=== PATIENT | female | born 1970 | race Caucasian/White ===

== ENCOUNTER 2017-04-07 10:35 | Emergency (ER) | payer MEDICARE, MEDICAID ==
[2017-04-07] MEDS ORDERED: NS 0.9% 1000 ML* 2,000 ML IV ONE (19:14)
[2017-04-07] MEDS ORDERED: Ketorolac INJ* 30 MG/ML 1 ML VIAL IV PUSH ONE (19:15)
[2017-04-07] MEDS ORDERED: LORazepam INJ* 2 MG/ML 1 ML VIAL IV PUSH ONE (19:15)
[2017-04-07 19:28] LABS: Hematocrit 40 % (35-47); Hemoglobin 12.7 g/dl (12.0-16.0); Mean Corpuscular HGB Conc 32 g/dl (31-36); Mean Corpuscular Hemoglobin 29 pg (27-31); Mean Corpuscular Volume 91 fL (80-97); Mean Platelet Volume 8 um3 (7.4-10.4); Red Blood Count 4.36 10^6/ul (4.0-5.4); Red Cell Distribution Width 13 % (10.5-15); White Blood Count 5.1 10^3/ul (3.5-10.8)
[2017-04-07 19:43] LABS: ALT 15 U/L (7-52); AST 18 U/L (13-39); Albumin 4.5 g/dL (3.2-5.2); Alkaline Phosphatase 57 U/L (34-104); Anion Gap 6 mmol/L (2-11); BUN/Creatinine Ratio 16.7 (8-20); Blood Urea Nitrogen 16 mg/dL (6-24); CO2 Carbon Dioxide 28 mmol/L (22-32); Calcium 9.8 mg/dL (8.6-10.3); Chloride 104 mmol/L (101-111); EGFR African American 80.1 (>60); EGFR Non-African American 62.3 (>60); Globulin 2.3 g/dL (2-4); Glucose 113 mg/dL (70-100); Potassium 3.8 mmol/L (3.5-5.0); Sodium 138 mmol/L (133-145); Total Protein 6.8 g/dL (6.4-8.9)
--- NOTE | 2017-04-07 19:58 | RAD ---
INDICATION: Headache. COMPARISON: Comparison is made with a prior CT of the brain from November 29, 2015 and a prior MRI of the brain from January 04, 2016. TECHNIQUE: Contiguous axial sections of the brain were obtained from the skull base to the vertex without contrast. FINDINGS: The ventricles, cisterns and sulci are within normal limits. No significant focal abnormality or mass effect is seen. There is no evidence for hemorrhage. No significant focal osseous abnormality is seen. The visualized portion of the paranasal sinuses and mastoid air cells appear clear. IMPRESSION: NO EVIDENCE FOR ACUTE INTRACRANIAL ABNORMALITY.
--- NOTE | 2017-04-07 20:18 | RAD ---
INDICATION: Neck pain. COMPARISON: Comparison is made with a prior MRI of the cervical spine from January 04, 2016. TECHNIQUE: Contiguous axial sections were obtained from the skull base through the T2 vertebra. Images were reconstructed in the sagittal and coronal planes. FINDINGS: The vertebra are in normal alignment. No prevertebral soft tissue swelling or fracture is seen. At the C4-C5 level there is mild posterior uncinate process spurring. No significant spinal canal or neural foraminal narrowing is seen. At the C5-C6 level there is mild posterior uncinate process spurring. No significant spinal canal narrowing is seen. There is mild neural foraminal narrowing on the left side. At C6-C7 level there is mild posterior uncinate process spurring. No significant spinal canal or neural foraminal narrowing is seen. IMPRESSION: MILD CERVICAL SPONDYLOSIS, IF THE PATIENT'S SYMPTOMS PERSIST CONSIDER MR IMAGING FOR FURTHER EVALUATION.
--- NOTE | 2017-04-07 20:35 | ED ---
Headache - HPI Summary HPI Summary: 47F presents with enlarge lymph node on right side of neck that is causing a migraine. been seeing dr. jenkins for same. has been taking ativan for pain. she states her neck has been hurting and feel tight for 6 weeks. She states she has had low grade fevers and has been loosing weight. She denies any abdominal pain, n/v/d, chest pain, SOB, or sore throat. She admits to photophobia consistent with her migraines. She denies any change in vision. - History Of Current Complaint Chief Complaint: EDGeneral Stated Complaint: WEAKNESS,PAIN,WEIGHT LOSS Time Seen by Provider: 04/07/17 18:54 - Allergies/Home Medications Allergies/Adverse Reactions: Allergies Allergy/AdvReac Type Severity Reaction Status Date / Time Latex Allergy Severe Hives/Diff. Verified 11/29/15 21:29 Breathing/I tching Penicillins Allergy Severe Hives/Diff. Verified 11/29/15 21:29 Breathing/I tching Sulfa Antibiotics Allergy Intermediate Hives/Diff. Verified 11/29/15 21:29 Breathing/I tching Sulfites Allergy Intermediate Headache Verified 11/29/15 21:29 Diphenhydramine Allergy Anxiety Verified 11/29/15 21:29 Iodinated Diagnostic Agents Allergy Hives/Diff. Verified 11/29/15 21:29 Breathing/I tching Triptans Allergy GI Upset Verified 11/29/15 21:29 BENZOATE Allergy Intermediate GI Upset Uncoded 11/29/15 21:29 PMH/Surg Hx/FS Hx/Imm Hx Endocrine/Hematology History: Denies: Hx Diabetes Cardiovascular History: Denies: Hx Hypertension, Hx Pacemaker/ICD Respiratory History: Reports: Hx Asthma, Hx Seasonal Allergies GI History: Reports: Hx Gall Bladder Disease - colysystectomy 2010, Hx Gastroesophageal Reflux Disease, Hx Irritable Bowel, Hx Obstructive Bowel, Other GI Disorders - Campbell's Esophagus Denies: Hx Crohn's Disease - BEING WORKED UP History: Reports: Hx Kidney Stones, Other Problems/Disorders - Stage II Kidney Disease Denies: Hx Renal Disease - NEPHROLITHIALSIS Musculoskeletal History: Reports: Hx Back Problems - PHYSICAL TRAUMA FROM PAST. , Hx Bursitis - LEFT HIP, Hx Fibromyalgia Sensory History: Reports: Hx Contacts or Glasses, Hx Vision Problem Denies: Hx Hearing Aid, Other Sensory Impairments Opthamlomology History: Reports: Hx Contacts or Glasses, Hx Vision Problem Denies: Other Sensory Impairments Neurological History: Reports: Hx Migraine, Hx Nerve Disease - FIBROMYALGIA, Hx Seizures - Previous Hx, but pt did not report to t/w during eval, Other Neuro Impairments/Disorders - essential tremors, fibromyalgia Denies: Hx Spinal Cord Injury, Hx Transient Ischemic Attacks (TIA) Psychiatric History: Reports: Hx Anxiety, Hx Eating Disorder, Hx Depression, Hx Panic Disorder, Hx Post Traumatic Stress Disorder, Hx Inpatient Treatment - [facility] November 2014, Hx [facility], [facility], Hx Suicide Attempt, Other Psychiatric Issues/Disorders - Conversion Disorder Denies: Hx of Violent Episodes Against Others, Hx Substance Abuse - Cancer History Hx Chemotherapy: No Hx Radiation Therapy: No - Surgical History Surgery Procedure, Year, and Place: cholecystectomy- 2009[place] [facility] [place] [facility], [facility]. LAPROSCOPIC ABDOMINAL - EXPLORATORY;. [facility]; Hx Anesthesia Reactions: Yes - HEART WAS BEATING TOO FAST AFTER GALL BLADDER SURGERY Infectious Disease History: No Infectious Disease History: Denies: Hx Clostridium Difficile, Hx Hepatitis, Hx Human Immunodeficiency Virus (HIV), Hx of Known/Suspected MRSA, Hx Shingles, Hx Tuberculosis, Hx Known/ Suspected VRE, Hx Known/Suspected VRSA, History Other Infectious Disease, Traveled Outside the in Last 30 Days - Family History Known Family History: Positive: Unknown - Social History Alcohol Use: None Hx Substance Use: No Substance Use Type: Reports: None Hx Tobacco Use: No Smoking Status (MU): Never Smoked Tobacco Review of Systems Positive: Fever Negative: Chest Pain Negative: Shortness Of Breath Negative: Abdominal Pain Positive: Headache All Other Systems Reviewed And Are Negative: Yes Physical Exam Triage Information Reviewed: Yes Vital Signs On Initial Exam: Initial Vitals Temp Pulse Resp BP Pulse Ox 100.3 F 90 20 118/64 99 04/07/17 10:44 04/07/17 10:44 04/07/17 10:44 04/07/17 10:44 04/07/17 10:44 Vital Signs Reviewed: Yes Appearance: Positive: Well-Appearing Skin: Positive: Warm, Dry Head/Face: Positive: Normal Head/Face Inspection Eyes: Positive: Normal, EOMI, VIVI, Conjunctiva Clear ENT: Positive: Normal ENT inspection, Pharynx normal, TMs normal Neck: Positive: Tenderness @ - right posterior neck with possible lymph node?, Other: - neg kernig, [place]. Negative: Nuchal Rigidity Respiratory/Lung Sounds: Positive: Clear to Auscultation, Breath Sounds Present Cardiovascular: Positive: Normal, RRR Neurological: Positive: Sensory/Motor Intact, Alert, Oriented to Person Place, Time, CN Intact II-III - [place] Coma Scale Best Eye Response: 4 - Spontaneous Best Motor Response: 6 - Obeys Commands Best Verbal Response: 5 - Oriented Coma Scale Total: 15 Diagnostics - Vital Signs Vital Signs Temp Pulse Resp BP Pulse Ox 04/07/17 17:02 99 F 77 16 118/73 98 04/07/17 14:19 100.3 F 92 20 124/54 98 04/07/17 12:26 100.7 F 96 20 112/65 99 04/07/17 10:44 100.3 F 90 20 118/64 99 - Laboratory Lab Results: Lab Results 04/07/17 04/07/17 04/07/17 Range/Units 19:20 19:20 19:20 WBC 5.1 (3.5-10.8) 10^3/ul RBC 4.36 (4.0-5.4) 10^6/ul Hgb 12.7 (12.0-16.0) g/dl Hct 40 (35-47) % MCV 91 (80-97) fL MCH 29 (27-31) pg MCHC 32 (31-36) g/dl RDW 13 (10.5-15) % Plt Count 230 (150-450) 10^3/ul MPV 8 (7.4-10.4) um3 Neut % (Auto) 55.6 (38-83) % Lymph % (Auto) 34.8 (25-47) % [place] % (Auto) 8.0 (1-9) % Eos % (Auto) 0.6 (0-6) % Baso % (Auto) 1.0 (0-2) % Absolute Neuts (auto) 2.8 (1.5-7.7) 10^3/ul Absolute Lymphs (auto) 1.8 (1.0-4.8) 10^3/ul Absolute Monos (auto) 0.4 (0-0.8) 10^3/ul Absolute Eos (auto) 0 (0-0.6) 10^3/ul Absolute Basos (auto) 0 (0-0.2) 10^3/ul Absolute Nucleated RBC 0 10^3/ul Nucleated RBC % 0.1 Sodium 138 (133-145) mmol/L Potassium 3.8 (3.5-5.0) mmol/L Chloride 104 (101-111) mmol/L Carbon Dioxide 28 (22-32) mmol/L Anion Gap 6 (2-11) mmol/L BUN 16 (6-24) mg/dL Creatinine 0.96 H (0.51-0.95) mg/dL Est GFR ( Amer) 80.1 (>60) Est GFR (Non-Af Amer) 62.3 (>60) BUN/Creatinine Ratio 16.7 (8-20) Glucose 113 H (70-100) mg/dL Lactic Acid 0.7 (0.5-2.0) mmol/L Calcium 9.8 (8.6-10.3) mg/dL Total Bilirubin 0.50 (0.2-1.0) mg/dL AST 18 (13-39) U/L ALT 15 (7-52) U/L Alkaline Phosphatase 57 (34-104) U/L C-React Prot High Sens < 0.20 mg/L Total Protein 6.8 (6.4-8.9) g/dL Albumin 4.5 (3.2-5.2) g/dL Globulin 2.3 (2-4) g/dL Albumin/Globulin Ratio 2.0 (1-3) Result Diagrams: 04/07/17 19:20 04/07/17 19:20 Lab Statement: Any lab studies that have been ordered have been reviewed, and results considered in the medical decision making process. - Radiology brain Xray Interpretation: No Acute Changes Radiology Interpretation Completed By: Radiologist neck Xray Interpretation: Positive (See Comments) - IMPRESSION: MILD CERVICAL SPONDYLOSIS, IF THE PATIENT'S SYMPTOMS PERSIST CONSIDER MR IMAGING FOR FURTHER EVALUATIO Radiology Interpretation Completed By: Radiologist Headache Course/Dx - Course Course Of Treatment: 47F presents with enlarge lymph node on right side of neck that is causing a migraine. been seeing dr. jenkins for same. has been taking ativan for pain. she states her neck has been hurting and feel tight for 6 weeks. She states she has had low grade fevers and has been loosing weight. She denies any abdominal pain, n/v/d, chest pain, SOB, or sore throat. She admits to photophobia consistent with her migraines. She denies any change in vision. normal neuro exam. neg mengitidis signs. got CT brain and neck normal. labs normal. patient does not want any treatment for migraine. told to follow up with PCP. patient understands and agrees with plan. - Diagnoses Differential Diagnosis/HQI/PQRI: Meningitis, Migraine, Tension Headache Provider Diagnoses: Headache, Neck pain Discharge - Discharge Plan Condition: Good Disposition: HOME Referrals: Briseyda Gray MD [Primary Care Provider] - Additional Instructions: Follow up with primary within 5 days Return to ED if develop any new or worsening symptoms
[2017-04-07 20:58] VITALS: BP 121/64
== END 2017-04-07 20:59 | disposition home or self-care (01) ==
LOC: ED 10:35
DX: R51 Headache (principal); M54.2 Cervicalgia; R50.9 Fever, unspecified
CPT/HCPCS: 36415; 70450; 72125; 80053; 83605; 85025; 86141; 96374; 96375; 99282; J1885; J2060

== ENCOUNTER 2017-09-29 10:14 | Emergency (ER) | payer MEDICAID, MEDICARE ==
[2017-09-29 11:12] LABS: ABS Basophils 0 10^3/ul (0-0.2); ABS Eosinophils 0 10^3/ul (0-0.6); ABS Lymphocytes 1.3 10^3/ul (1.0-4.8); ABS Monocytes 0.4 10^3/ul (0-0.8); ABS Neutrophils 2.9 10^3/ul (1.5-7.7); ABS Nucleated RBC 0 10^3/ul; Eosinophil % 0.9 % (0-6); Hematocrit 38 % (35-47); Hemoglobin 12.7 g/dl (12.0-16.0); Lymphocyte % 27.5 % (25-47); Mean Corpuscular HGB Conc 33 g/dl (31-36); Mean Corpuscular Hemoglobin 30 pg (27-31); Mean Corpuscular Volume 89 fL (80-97); Mean Platelet Volume 8 um3 (7.4-10.4); Nucleated Red Blood Cells % 0.1; Platelet Count 212 10^3/ul (150-450); Red Blood Count 4.27 10^6/ul (4.0-5.4); Red Cell Distribution Width 14 % (10.5-15); White Blood Count 4.7 10^3/ul (3.5-10.8)
[2017-09-29 11:22] LABS: INR 0.85 (0.77-1.02)
[2017-09-29 11:40] LABS: EGFR Non-African American 63.1 (>60)
--- NOTE | 2017-09-29 11:54 | RAD ---
HISTORY: Chest pain COMPARISONS: December 27, 2015 VIEWS: 1: frontal portable view of the chest at 11:15 AM FINDINGS: LINES AND TUBES: None. CARDIOMEDIASTINAL SILHOUETTE: The cardiomediastinal silhouette is normal for portable technique. PLEURA: The costophrenic angles are sharp. No pleural abnormalities are noted. LUNG PARENCHYMA: The lungs are clear. ABDOMEN: The upper abdomen is clear. There is no subphrenic gas. BONES AND SOFT TISSUES: No bone or soft tissue abnormalities are noted. IMPRESSION: NO ACTIVE CARDIOPULMONARY DISEASE.
[2017-09-29 13:34] VITALS: BP 99/51
--- NOTE | 2017-09-29 22:44 | ED ---
Rudy Sadler Jennifer, scribed for Manoj Lu MD on 09/29/17 at 1058 . HPI Chest Pain - HPI Summary HPI Summary: The patient is a 47 year old female who presents to the ED with chest pain that began this morning at 07:30. The patient describes that it is a burning pain and pressure in the chest that radiates to the left arm. She additionally complains of indigestion, an aching sensation, and burning in the throat. She took a Pepcid this morning that did not alleviate her symptoms. Movement and palpation aggravates the pain. The patient also has a history of Barretts esophagus and anxiety. - History of Current Complaint Chief Complaint: EDChestPainROMI Time Seen by Provider: 09/29/17 10:32 Hx Obtained From: Patient Onset/Duration: Started Hours Ago - about 3 hours ago, Still Present Timing: Constant Initial Severity: Moderate Current Severity: Moderate Pain Intensity: 7 Pain Scale Used: 0-10 Numeric Chest Pain Location: Mid Sternal Chest Pain Radiates: Yes Chest Pain Radiates To:: Arm - left arm Character: Burning, Pressure/Squeezing Aggravating Factor(s): Movement Alleviating Factor(s): Nothing Associated Signs and Symptoms: Positive: Other: - Burning pain, pressure, indigestion, aching sensation, burning in the throat. - Additional Pertinent History Primary Care Physician: YOLI - Allergy/Home Medications Allergies/Adverse Reactions: Allergies Allergy/AdvReac Type Severity Reaction Status Date / Time MS Latex [Latex] Allergy Severe Hives/Diff. Verified 11/29/15 21:29 Breathing/I tching MS Penicillins [Penicillins] Allergy Severe Hives/Diff. Verified 11/29/15 21:29 Breathing/I tching MS Sulfa Antibiotics Allergy Intermediate Hives/Diff. Verified 11/29/15 21:29 [Sulfa Antibiotics] Breathing/I tching MS Sulfites [Sulfites] Allergy Intermediate Headache Verified 11/29/15 21:29 MS Diphenhydramine Allergy Anxiety Verified 11/29/15 21:29 [Diphenhydramine] MS Iodinated Diagnostic Allergy Hives/Diff. Verified 11/29/15 21:29 Agents Breathing/I [Iodinated Diagnostic Agents] tching MS Triptans [Triptans] Allergy GI Upset Verified 11/29/15 21:29 BENZOATE Allergy Intermediate GI Upset Uncoded 11/29/15 21:29 PMH/Surg Hx/FS Hx/Imm Hx Endocrine/Hematology History: Denies: Hx Diabetes Cardiovascular History: Denies: Hx Hypertension, Hx Pacemaker/ICD Respiratory History: Reports: Hx Asthma, Hx Seasonal Allergies GI History: Reports: Hx Gall Bladder Disease - colysystectomy 2009, Hx Gastroesophageal Reflux Disease, Hx Irritable Bowel, Hx Obstructive Bowel, Other GI Disorders - Campbell's Esophagus Denies: Hx Crohn's Disease - BEING WORKED UP History: Reports: Hx Kidney Stones, Other Problems/Disorders - Stage II Kidney Disease Denies: Hx Renal Disease - NEPHROLITHIALSIS Musculoskeletal History: Reports: Hx Back Problems - PHYSICAL TRAUMA FROM PAST. , Hx Bursitis - LEFT HIP, Hx Fibromyalgia Sensory History: Reports: Hx Contacts or Glasses, Hx Vision Problem Denies: Hx Hearing Aid, Other Sensory Impairments Opthamlomology History: Reports: Hx Contacts or Glasses, Hx Vision Problem Denies: Other Sensory Impairments Neurological History: Reports: Hx Migraine, Hx Nerve Disease - FIBROMYALGIA, Hx Seizures - Previous Hx, but pt did not report to t/w during eval, Other Neuro Impairments/Disorders - essential tremors, fibromyalgia Denies: Hx Spinal Cord Injury, Hx Transient Ischemic Attacks (TIA) Psychiatric History: Reports: Hx Anxiety, Hx Eating Disorder, Hx Depression, Hx Panic Disorder, Hx Post Traumatic Stress Disorder, Hx Inpatient Treatment - [facility] November 2014, Hx [facility], [facility], Hx Suicide Attempt, Other Psychiatric Issues/Disorders - Conversion Disorder Denies: Hx of Violent Episodes Against Others, Hx Substance Abuse - Cancer History Hx Chemotherapy: No Hx Radiation Therapy: No - Surgical History Surgery Procedure, Year, and Place: cholecystectomy- 2009- [facility] [place]. appendectomy, ovarian cyst removed- 1991- [place];. LAPROSCOPIC ABDOMINAL - EXPLORATORY;. [facility]; Hx Anesthesia Reactions: Yes - HEART WAS BEATING TOO FAST AFTER GALL BLADDER SURGERY Infectious Disease History: No Infectious Disease History: Denies: Hx Clostridium Difficile, Hx Hepatitis, Hx Human Immunodeficiency Virus (HIV), Hx of Known/Suspected MRSA, Hx Shingles, Hx Tuberculosis, Hx Known/ Suspected VRE, Hx Known/Suspected VRSA, History Other Infectious Disease, Traveled Outside the [place] in Last 30 Days - Family History Known Family History: Positive: Diabetes - Social History Alcohol Use: None Hx Substance Use: No Substance Use Type: Reports: None Hx Tobacco Use: No Smoking Status (MU): Never Smoked Tobacco Review of Systems ENT: Other - Burning throat Positive: Chest Pain - Burning, pressure, aching Gastrointestinal: Other - Indigestion All Other Systems Reviewed And Are Negative: Yes Physical Exam - Summary Physical Exam Summary: Appearance: The patient is well-nourished in no acute distress and in no acute pain. Skin: The skin is warm and dry and skin color reflects adequate perfusion. HEENT: ~The head is normocephalic and atraumatic. The pupils are equal and reactive. The conjunctivae are clear and without drainage. ~Nares are patent and without drainage. ~Mouth reveals moist mucous membranes and the throat is without erythema and exudate. ~The external ears are intact. The ear canals are patent and without drainage. The tympanic membranes are intact. Neck: the neck is supple with full range of motion and non-tender. There are no carotid bruits. ~There is no neck vein distension. Respiratory: There is some tenderness in the left parasternal area. ~Lungs are clear to auscultation and breath sounds are symmetrical and equal. Cardiovascular: Heart is regular rate and rhythm. ~There is no murmur or rub auscultated. ~~There is no peripheral edema and pulses are symmetrical and equal. Abdomen: The abdomen is soft and non-tender. ~There are normal bowel sounds heard in all four quadrants and there is no organomegaly palpated. Musculoskeletal: There is no back tenderness noted. ~Extremities are non-tender with full range of motion. ~There is good capillary refill. ~There is no peripheral edema or calf tenderness elicited. Neurological: Patient is alert and oriented to person, place and time. ~The patient has symmetrical motor strength in all four extremities. ~Cranial nerves are grossly intact. Deep tendon reflexes are symmetrical and equal in all four extremities. Psychiatric: The patient has an appropriate affect and does not exhibit any anxiety or depression. Triage Information Reviewed: Yes Vital Signs On Initial Exam: Initial Vitals Temp Pulse Resp BP Pulse Ox 98.5 F 97 18 125/75 98 09/29/17 10:09/29/17 10:09/29/17 10:09/29/17 10:09/29/17 10:17 Vital Signs Reviewed: Yes Diagnostics - Vital Signs Vital Signs Temp Pulse Resp BP Pulse Ox 09/29/17 10:17 98.5 F 97 18 125/75 98 - Laboratory Lab Results: Lab Results 09/29/17 09/29/17 09/29/17 Range/Units 11:03 11:03 11:03 WBC 4.7 (3.5-10.8) 10^3/ul RBC 4.27 (4.0-5.4) 10^6/ul Hgb 12.7 (12.0-16.0) g/dl Hct 38 (35-47) % MCV 89 (80-97) fL MCH 30 (27-31) pg MCHC 33 (31-36) g/dl RDW 14 (10.5-15) % Plt Count 212 (150-450) 10^3/ul MPV 8 (7.4-10.4) um3 Neut % (Auto) 62.6 (38-83) % Lymph % (Auto) 27.5 (25-47) % [place] % (Auto) 8.3 (1-9) % Eos % (Auto) 0.9 (0-6) % Baso % (Auto) 0.7 (0-2) % Absolute Neuts (auto) 2.9 (1.5-7.7) 10^3/ul Absolute Lymphs (auto) 1.3 (1.0-4.8) 10^3/ul Absolute Monos (auto) 0.4 (0-0.8) 10^3/ul Absolute Eos (auto) 0 (0-0.6) 10^3/ul Absolute Basos (auto) 0 (0-0.2) 10^3/ul Absolute Nucleated RBC 0 10^3/ul Nucleated RBC % 0.1 INR (Anticoag Therapy) 0.85 (0.77-1.02) D-Dimer, Quantitative < 200 (Less Than 230) ng/mL Sodium 138 (133-145) mmol/L Potassium 4.0 (3.5-5.0) mmol/L Chloride 105 (101-111) mmol/L Carbon Dioxide 29 (22-32) mmol/L Anion Gap 4 (2-11) mmol/L BUN 13 (6-24) mg/dL Creatinine 0.95 (0.51-0.95) mg/dL Est GFR ( Amer) 81.1 (>60) Est GFR (Non-Af Amer) 63.1 (>60) BUN/Creatinine Ratio 13.7 (8-20) Glucose 103 H (70-100) mg/dL Lactic Acid (0.5-2.0) mmol/L Calcium 9.6 (8.6-10.3) mg/dL Total Bilirubin 0.40 (0.2-1.0) mg/dL AST 17 (13-39) U/L ALT 15 (7-52) U/L Alkaline Phosphatase 62 (34-104) U/L Troponin I 0.00 (<0.04) ng/mL Total Protein 6.8 (6.4-8.9) g/dL Albumin 4.4 (3.2-5.2) g/dL Globulin 2.4 (2-4) g/dL Albumin/Globulin Ratio 1.8 (1-3) 09/29/17 09/29/17 Range/Units 11:03 12:26 WBC (3.5-10.8) 10^3/ul RBC (4.0-5.4) 10^6/ul Hgb (12.0-16.0) g/dl Hct (35-47) % MCV (80-97) fL MCH (27-31) pg MCHC (31-36) g/dl RDW (10.5-15) % Plt Count (150-450) 10^3/ul MPV (7.4-10.4) um3 Neut % (Auto) (38-83) % Lymph % (Auto) (25-47) % [place] % (Auto) (1-9) % Eos % (Auto) (0-6) % Baso % (Auto) (0-2) % Absolute Neuts (auto) (1.5-7.7) 10^3/ul Absolute Lymphs (auto) (1.0-4.8) 10^3/ul Absolute Monos (auto) (0-0.8) 10^3/ul Absolute Eos (auto) (0-0.6) 10^3/ul Absolute Basos (auto) (0-0.2) 10^3/ul Absolute Nucleated RBC 10^3/ul Nucleated RBC % INR (Anticoag Therapy) (0.77-1.02) D-Dimer, Quantitative (Less Than 230) ng/mL Sodium (133-145) mmol/L Potassium (3.5-5.0) mmol/L Chloride (101-111) mmol/L Carbon Dioxide (22-32) mmol/L Anion Gap (2-11) mmol/L BUN (6-24) mg/dL Creatinine (0.51-0.95) mg/dL Est GFR ( Amer) (>60) Est GFR (Non-Af Amer) (>60) BUN/Creatinine Ratio (8-20) Glucose (70-100) mg/dL Lactic Acid 0.6 (0.5-2.0) mmol/L Calcium (8.6-10.3) mg/dL Total Bilirubin (0.2-1.0) mg/dL AST (13-39) U/L ALT (7-52) U/L Alkaline Phosphatase (34-104) U/L Troponin I 0.00 (<0.04) ng/mL Total Protein (6.4-8.9) g/dL Albumin (3.2-5.2) g/dL Globulin (2-4) g/dL Albumin/Globulin Ratio (1-3) Result Diagrams: 09/29/17 11:03 09/29/17 11:03 Lab Statement: Any lab studies that have been ordered have been reviewed, and results considered in the medical decision making process. - Radiology CXR Xray Interpretation: No Acute Changes - NO ACTIVE CARDIOPULMONARY DISEASE. Dr. Lu has reviewed this report. Radiology Interpretation Completed By: Radiologist - EKG 10:24 Cardiac Rate: NL EKG Rhythm: Sinus Rhythm - 72 BPM Ectopy: None EKG Interpretation: no STEMI Chest Pain Course/Dx - Course Course Of Treatment: Ms. Carlos Eduardo Fritz presented with CP that sounded epigastric. She has a long history of epigastric problems. She refused any medication and only wanted to be R/O'd for a heart attack. Her initial troponin was 0 and she refused to wait for a 3 hour repeat but was willing to wait 90 minutes which [address] the second one about 5 hours after the pain started. It was also 0. - Diagnoses Provider Diagnoses: Chest pain Discharge - Discharge Plan Condition: Stable Disposition: HOME Patient Education Materials: Chest Pain (ED) Referrals: Briseyda Gray MD [Primary Care Provider] - 3 Days Additional Instructions: Follow up with your primary care physician in three days. Return to the emergency department for any new or worsening symptoms. The documentation as recorded by the Rudy larkin Jennifer accurately reflects the service I personally performed and the decisions made by me, Manoj Lu MD.
== END 2017-09-29 13:34 | disposition home or self-care (01) ==
LOC: ED 10:14
DX: R07.9 Chest pain, unspecified (principal)
CPT/HCPCS: 36415; 71045; 80053; 83605; 84484; 85025; 85379; 85610; 93005; 99282

== ENCOUNTER 2017-10-10 11:39 | Day surgery (SDC) | payer MEDICARE, MEDICAID ==
[~2017-10-10 11:39] MED LIST: Buffered Lidocaine 0.9% SYRIN* 5 ML/SYR SYRINGE INTRADERM ONE
[2017-10-10] MEDS ORDERED: Buffered Lidocaine 0.9% SYRIN* 5 ML/SYR SYRINGE ONE (11:42)
[2017-10-10] MEDS ORDERED: Ketorolac INJ* 30 MG/ML 1 ML VIAL IV PRN (12:48)
[2017-10-10] MEDS ORDERED: Ibuprofen TAB* 600 MG PO PRN (12:48)
[2017-10-10] MEDS ORDERED: fentaNYL* 50 MCG/ML 2 ML VIAL (100 MCG VIAL) IV PRN (12:48)
[2017-10-10] MEDS ORDERED: Scopolamine 1.5 mg* PATCH TRANSDERM PRN (12:48)
[2017-10-10] MEDS ORDERED: diPHENhydraMINE IV* 50 MG/ML 1 ml VIAL (BENADRYL) IV PRN (12:48)
[2017-10-10] MEDS ORDERED: Naloxone* 0.4 MG/ML 1 ML VIAL IV PRN (12:48)
[2017-10-10] MEDS ORDERED: Ondansetron INJ* 2 MG/ML VIAL IV PRN (12:48)
[2017-10-10] MEDS ORDERED: Levalbuterol 0.63MG/3ML NEB* UNIT OF USE INH ONE (12:48)
[2017-10-10] MEDS ORDERED: Midazolam* 1 MG/ML 5 ML VIAL (5 MG) ONE (13:23)
[2017-10-10] MEDS ORDERED: Lidocaine 2% PF * 5 ML VIAL ONE (13:23)
[2017-10-10] MEDS ORDERED: Propofol* 500 MG/50 ML BTL ONE (13:23)
[2017-10-10] MEDS ORDERED: Ondansetron INJ* 2 MG/ML VIAL ONE (16:12)
[2017-10-10 16:18] VITALS: BP 108/65
--- NOTE | 2017-10-11 14:54 | PRO ---
CC: Dr. Gray * GASTROENTEROLOGY OPERATIVE REPORT: DATE OF PROCEDURE: 10/10/17 - [facility] OPERATIVE PROCEDURE: Esophagogastroduodenoscopy to the third portion of duodenum. SURGEON: Shannon Gonzalez MD ANESTHESIA: MAC. 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 PREOPERATIVE DIAGNOSES: 1. Campbell's esophagus. 2. Surveillance endoscopy. POSTOPERATIVE DIAGNOSES: 1. Normal-appearing duodenum to the third portion with biopsies to rule out celiac disease. 2. Moderate antral gastritis with biopsies from the antrum and body and CLOtest to rule out Helicobacter pylori. 3. Irregular appearing gastroesophageal junction at 35 cm with biopsies to rule out Campbell's esophagus. 4. Normal mid and proximal esophagus. RECOMMENDATIONS: We will follow up with path results and determine timing of repeat upper endoscopy for Campbell's surveillance. DESCRIPTION OF PROCEDURE: Esophagogastroduodenoscopy was explained in detail to the patient. The risks, benefits, complications, alternatives, and possibilities of missed lesions were explained and understood. Complications included, but were not limited to reaction to anesthesia, aspiration, increased risk of bleeding, and perforation. All questions were answered. The patient demonstrated understanding of the conversation and informed consent was obtained. Next, the patient was brought into the operating room and placed in the left lateral recumbent position, where blood pressure, cardiac, and oxygen monitors were applied. The patient was found to be a fit candidate for moderate anesthesia care. After adequate IV sedation was achieved, a bite block was placed. Next, a standard adult Olympus endoscope was inserted per os under direct visualization of the first, second, and third portion of the duodenum, which were grossly normal appearing. Cold forceps biopsies were obtained from this area to rule out celiac disease. Further withdrawal into the gastric lumen revealed moderate erythema in the antrum. Cold forceps biopsies were obtained from the antrum and body. A CLOtest was also performed to rule out H. Pylori. On retroflexion, the patient had a normal gastric cardia sling. Further withdrawal of the endoscope into the distal esophagus revealed an irregular-appearing gastroesophageal junction at 35 cm from the incisors. There was no evidence of endoscopic Campbell's seen. Cold forceps biopsies were obtained from this area to rule out Campbell's esophagus. The rest of the tubular esophagus was normal appearing. Air was then removed from the patient. Endoscope was removed from the patient. The patient tolerated the procedure well. There were no immediate complications. 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 Thank you, Dr. Gray, for allowing us to participate in the care of your patient. If you should have any further questions or concerns, please do not hesitate to contact us. [id number]/[facility] #: [id number] BULMARO
[2017-10-13] MEDS ORDERED: Scopolamine PATCH Remove* 1 NOTE MISC PATCH OFF ONE (12:49)
== END 2017-10-10 17:07 | disposition home or self-care (01) ==
LOC: OR 11:39
PROVIDERS: ATTEND Internal Medicine Gastroenterology
DX: K22.70 Barrett's esophagus without dysplasia (principal); F41.9 Anxiety disorder, unspecified; K29.60 Other gastritis without bleeding; J45.909 Unspecified asthma, uncomplicated; J31.0 Chronic rhinitis; K21.9 Gastro-esophageal reflux disease without esophagitis; M79.7 Fibromyalgia; F41.8 Other specified anxiety disorders; F43.10 Post-traumatic stress disorder, unspecified
CPT/HCPCS: 81025; 87077; 88305; 88342; J2250; J2405; J2704

== ENCOUNTER 2018-10-23 18:04 | Emergency (ER) | payer MEDICARE, MEDICAID ==
--- OUTSIDE RECORDS SUMMARY | 2018-10-23 19:01 | XMS REPORT | Continuity of Care Document ---
:1970 External Reference #:[id number] Author Name Sia Azul Care Team Providers Name Role Phone Briseyda Gray MD Primary Care Physician Unavailable Payers Date Identification Numbers Payment Provider Subscriber Policy Number: [id number] Medicare Shena Thibodeaux PayID: [id number] [address] [place] [address] Policy Number: [id number] Medicaid Shena Thibodeaux Group Name: 1 1 [address] PayID: [id number] [place] [address] Advance Directives Description No Information Available Problems Date Description Provider Status Onset: 12/07/2013 Palpitations Aicha Rueda M.D. Active Onset: 12/07/2013 Dizziness and giddiness Aicha Rueda M.D. Active Onset: 12/07/2013 Chest pain Aicha Rueda M.D. Active Onset: 12/28/2013 Myalgia & Myositis Unspecified Aicha Rueda M.D. Active Onset: 12/28/2013 Electrocardiogram abnormal Aicha Rueda M.D. Active Onset: 12/28/2013 Dyspnea Aicha Rueda M.D. Active Onset: 01/03/2014 Low blood pressure Aicha Rueda M.D. Active Onset: 05/29/2015 Essential tremor Barbara Eugene M.D. Active Onset: 05/29/2015 Migraine Barbara Eugene M.D. 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 Active Onset: 05/29/2015 Muscle weakness Barbara Eugene M.D. Inactive Inactive: 08/26/2015 Note: left side Family History Date Family Member(s) Observation Comments General cancer anut and mother breast ca, [place], [place] Father Unknown Mother due to Lung Cancer () Siblings 2 Social History Type Date Description Comments Sex Unknown Marital Status Lives With Alone Occupation Disabled Hand Dominance Left-handed ETOH Use Denies alcohol use Tobacco Use Start: Unknown Patient has never second hand smoke smoked Recreational Drug Use Denies Drug Use Smoking Status Reviewed: 09/30/18 Patient has never second hand smoke smoked Exercise Type/Frequency Exercises sporadically Allergies, Adverse Reactions, Alerts Date Description Reaction Status Severity Comments 01/07/2013 Latex Active 01/07/2013 Penicillin Active 01/07/2013 Sulfa Antibiotics Active 01/07/2013 Contrast Dye Active 08/24/2015 Sulfites Active 12/25/2015 Iodine Active 04/03/2018 Shellfish-Derived Products Active Medications Medication Date Status Form Strength Qnty SIG Indications Ordering Provider Oxygen 01/08 Active Misc 1unit please use s oxygen at 12 Cowdery, lpm, as M.D. needed for cluster headaches Tizanidine Active Capsules 2mg 90cap 1/2 tablet Barbara HCL / s by mouth Jabier, every night M.D. at dinner Lorazepam Active Tablets 0.5mg 30tab take 1-2 tab Unknown /0000 s prn MDD 3mg Seroquel Active Tablets 25mg 30tab 1-2 tabs po Unknown /0000 s qhs Viibryd Active 15mg 1 tab qam and Unknown /0000 1/2 tab q noon Famotidine Active Tablets 20mg 1/2 po daily Unknown /0000 Colace 00 Active Capsules 100mg 60cap 1 po as Unknown /0000 s needed Ondansetron Active Tablets 4mg 1 three times Unknown /0000 Dispers a day as needed for nausea Glycerin Active Suppository 2gm per rectum Unknown Adult /0000 prn constipation Elglutamine Active As directed.. Unknown Plus /0000 Atrovent HFA Active Aerosol 17mcg/Act 2 puffs Unknown /0000 inhalation four times a day Glutamine Active Tablets 1 by mouth Unknown Plus /0000 every day Commode 12/24 Hx Misc 1unit use at R26.89 Barbara Bedside /2015 s bedside in [facility], - setting of M.D. 09/29 urgency and /2018 poor mobility; diffiuse weakness Effexor Hx Tablets 37.5mg 30tab 1/8cap po qd Unknown /0000 s - 01/07 Centrum Hx Tablets 100ta 1 po qd Unknown /0000 bs - 10/08 Atrovent HFA Hx Aerosol 17mcg/Act 12.90 1 puff Unknown /0000 0gm inhaled qid - prn 12/23 Nasacort Aq Hx Aerosol 55mcg/Act 1unit 2 sprays once Unknown /0000 s per day each - nares prn 12/23 Miralax Hx Powder 3350NF 17 gm every Unknown /0000 day mixed w/ - 8 oz 05/04 water/juice /2016 po qday, prn constipation Womens Hx Tablets 1/4 tab by Unknown [place] /0000 mouth every Vitamin - day 11/06 Diazepam Hx Tablets 5mg 1 tab by Unknown /0000 mouth for abd - pain prn 08/18 Miralax Hx Powder 3350NF 17 gm every Unknown /0000 day mixed w/ - 8 oz 05/03 water/juice Immunizations Description No Information Available Vital Signs Date Vital Result Comment 09/30/2018 9:36am Height 65.5 inches 5'5.50" Weight 114.50 lb Heart Rate 66 /min BP Systolic 102 mmHg BP Diastolic 70 mmHg BMI (Body Mass Index) 18.8 kg/m2 08/19/2018 11:29am Height 65.5 inches 5'5.50" Weight 114.00 lb with sneakers Heart Rate 65 /min BP Systolic Sitting 100 mmHg lue reg cuff BP Diastolic Sitting 60 mmHg lue reg cuff BP Systolic Standing 102 mmHg lue reg cuff BP Diastolic Standing 60 mmHg lue reg cuff BMI (Body Mass Index) 18.7 kg/m2 05/15/2018 11:06am Height 65.5 inches 5'5.50" Weight 108.25 lb Heart Rate 68 /min BP Systolic Sitting 102 mmHg BP Diastolic Sitting 60 mmHg Respiratory Rate 15 /min BMI (Body Mass Index) 17.7 kg/m2 05/04/2018 8:49am Height 65.5 inches 5'5.50" Weight 107.00 lb w/shoes Heart Rate 76 /min BP Systolic Sitting 96 mmHg Lue reg cuff BP Diastolic Sitting 82 mmHg Lue reg cuff BMI (Body Mass Index) 17.5 kg/m2 Ejection Fraction 50% Stress Echo 12/28/13 11/07/2017 10:59am Height 65.5 inches 5'5.50" Weight 104.38 lb Heart Rate 68 /min BP Systolic 110 mmHg BP Diastolic 76 mmHg Respiratory Rate 14 /min BMI (Body Mass Index) 17.1 kg/m2 05/05/2017 1:44pm Height 65.5 inches 5'5.50" Weight 104.50 lb Heart Rate 62 /min BP Systolic Sitting 98 mmHg BP Diastolic Sitting 60 mmHg BMI (Body Mass Index) 17.1 kg/m2 10/09/2016 12:18pm Height 65.5 inches 5'5.50" Weight 108.00 lb Heart Rate 64 /min BP Systolic Sitting 104 mmHg BP Diastolic Sitting 60 mmHg Respiratory Rate 14 /min BMI (Body Mass Index) 17.7 kg/m2 12/25/2015 9:52am Height 65.5 inches 5'5.50" Weight 105.00 lb stated weight Heart Rate 74 /min BP Systolic Sitting 110 mmHg BP Diastolic Sitting 72 mmHg Respiratory Rate 16 /min BMI (Body Mass Index) 17.2 kg/m2 08/24/2015 9:38am Height 65.5 inches 5'5.50" Weight 110.00 lb Heart Rate 76 /min BP Systolic Sitting 112 mmHg BP Diastolic Sitting 72 mmHg Respiratory Rate 16 /min BMI (Body Mass Index) 18.0 kg/m2 05/29/2015 2:37pm Height 65.5 inches 5'5.50" Weight 109.00 lb Heart Rate 64 /min BP Systolic Sitting 92 mmHg BP Diastolic Sitting 68 mmHg Respiratory Rate 14 /min BMI (Body Mass Index) 17.9 kg/m2 04/04/2014 12:07pm Height 65.5 inches 5'5.50" Weight 122.00 lb Heart Rate 70 /min BP Systolic Sitting 130 mmHg BP Diastolic Sitting 80 mmHg Respiratory Rate 16 /min BMI (Body Mass Index) 20.0 kg/m2 01/03/2014 2:58pm Height 65.5 inches 5'5.50" Weight 135.25 lb Heart Rate 80 /min BP Systolic Sitting 118 mmHg left, reg cuff BP Diastolic Sitting 80 mmHg left, reg cuff BMI (Body Mass Index) 22.2 kg/m2 12/07/2013 11:01am Height 65.5 inches 5'5.50" Weight 137.00 lb Heart Rate 60 /min BP Systolic Sitting 110 mmHg BP Diastolic Sitting 90 mmHg Respiratory Rate 16 /min BMI (Body Mass Index) 22.4 kg/m2 10/21/2013 11:58am Heart Rate 68 /min BP Systolic Sitting 116 mmHg BP Diastolic Sitting 74 mmHg Respiratory Rate 12 /min 04/26/2013 11:43am Heart Rate 60 /min BP Systolic Sitting 106 mmHg BP Diastolic Sitting 62 mmHg Respiratory Rate 12 /min 01/07/2013 11:47am Heart Rate 63 /min BP Systolic Sitting 100 mmHg BP Diastolic Sitting 72 mmHg Respiratory Rate 12 /min 07/01/2012 11:46am Heart Rate 62 /min BP Systolic 104 mmHg BP Diastolic 68 mmHg Respiratory Rate 12 /min Results Description No Information Available Procedures Date Code Description Status 08/31/2018 03847 Stress ECHO Interpretation/Report Hospital Completed 08/31/2018 21698 Treadmill Interp/Report Only Completed 08/31/2018 14873 Stress Test Supervsn W/Out I/R Completed 05/04/2018 13830 EKG Tracing & Interpretation Completed 10/10/2017 53723 Endoscopy Upper GI Biopsy Completed 01/03/2016 70000 Holter Monitor Review (24 hr)dr review & interp only Completed 01/01/2016 97251 ECG Monitor/Recording W/Visual Superimposition Scanning Completed 08/24/2015 52502 Nerve Conduction 07-08 Studies Completed 08/24/2015 28803 Needle Electromyography Each Extremity W/Related Completed Paraspinal Areas 03/24/2015 36879 EKG, Interpretation Only Completed 03/23/2015 35453 EKG, Interpretation Only Completed 12/28/2013 35210 ECHO Stress Test Incl Perf Contiuous ekg Monitoring W/Phys Completed Superv 12/28/2013 57333 ECHO Stress Test Incl Perf Contiuous ekg Monitoring W/Phys Completed Superv 12/09/2013 70105 Holter Monitoring 24 HR New Completed 12/08/2013 78779 ECHO Transthoracic, Real-Time 2D With Doppler And Color Completed Flow 12/07/2013 82449 EKG Tracing & Interpretation Completed 11/03/2013 26544 EEG Recording Awake & Drowsy Completed 09/30/2012 26384 ECHO Transthoracic, Real-Time 2D With Doppler And Color Completed Flow Encounters Type Date Location Provider Dx Diagnosis Office Visit 08/19/2018 [facility] Chaim Ray, R07.9 Chest pain, 11:40a Of Training Representative DO FACC unspecified I42.9 Cardiomyopathy, unspecified R06.02 Shortness of breath Office Visit 05/15/2018 [facility] Barbara Eugene, G43.109 Migraine with 11:00a Neurologic M.D. aura, not Services Of Training Representative intractable, w/o status migrainosus R25.2 Cramp and spasm G44.019 Episodic cluster headache, not intractable Office Visit 05/04/2018 9:00a [facility] Qutaybeh S. R06.02 Shortness of Maghaydah, M.D. breath R00.2 Palpitations R07.9 Chest pain, unspecified R60.9 Edema, unspecified Office Visit 11/07/2017 [facility] Barbara Eugene, G43.109 Migraine with 11:00a Neurologic M.D. aura, not Services Of Training Representative intractable, w/o status migrainosus G44.019 Episodic cluster headache, not intractable R25.1 Tremor, unspecified Office Visit 05/05/2017 2:00p [facility] Barbara Eugene, R53.1 Weakness Services Of Training Representative M.D. H53.8 Other visual disturbances R29.6 Repeated falls R51 Headache Office Visit 10/09/2016 [facility] Barbara Eugene, G43.109 Migraine with 11:30a Neurologic M.D. aura, not Services Of Training Representative intractable, w/o status migrainosus R25.1 Tremor, unspecified Office Visit 12/25/2015 [facility] Barbara Eugene, G43.109 Migraine with 10:00a Neurologic M.D. aura, not Services Of Training Representative intractable, w/o status migrainosus R26.89 Other abnormalities of gait and mobility R20.2 Paresthesia of skin R47.1 Dysarthria and anarthria R00.2 Palpitations Office Visit 08/24/2015 [facility] Barbara Workmanalpa, M62.81 Muscle weakness 9:30a Neurologic M.D. 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 (generalized) [facility] R20.0 Anesthesia of skin R26.89 Other abnormalities of gait and mobility F44.7 Conversion disorder with mixed symptom presentation R25.1 Tremor, unspecified G43.109 Migraine with aura, not intractable, w/o status migrainosus Office Visit 03/24/2015 [facility] Armen Ashley 728.87 Muscle Weakness 12:19p Assoc,pc II, M.D. Generalized Hospitalists 729.1 Myalgia & Myositis Unspec 530.81 Esophageal Reflux 300.00 Anxiety State Unspec Office Visit 02/05/2015 3:35p [facility] Hill Loomis, 780.79 Malaise And Assoc,pc N.P. Fatigue Other Hospitalists 789.00 Pain Abdominal Unspec Site 300.00 Anxiety State Unspec 311 Depressive Disorder Not Elsewhere Spec Office Visit 02/04/2015 3:35p [facility] 789.00 Pain Abdominal Assoc,pc Vladislav, N.P. Unspec Site Hospitalists 780.79 Malaise And Fatigue Other 300.00 Anxiety State Unspec 311 Depressive Disorder Not Elsewhere Spec Office Visit 02/03/2015 3:34p [facility] 789.00 Pain Abdominal Assoc,pc Yuniel, HARDBOARD SUPERVISOR Unspec Site Hospitalists 780.79 Malaise And Fatigue Other 300.00 Anxiety State Unspec 311 Depressive Disorder Not Elsewhere Spec Office Visit 02/02/2015 3:34p [facility] Annita Brice 780.79 Malaise And Assoc,pc HARDBOARD SUPERVISOR Fatigue Other Hospitalists 789.00 Pain Abdominal Unspec Site 300.00 Anxiety State Unspec 311 Depressive Disorder Not Elsewhere Spec Office Visit 02/01/2015 3:33p [facility] Annita Brice, 780.79 Malaise And Assoc,pc HARDBOARD SUPERVISOR Fatigue Other Hospitalists 789.00 Pain Abdominal Unspec Site 311 Depressive Disorder Not Elsewhere Spec 300.00 Anxiety State Unspec Office Visit 01/31/2015 3:32p [facility] Emely HaywoodGiacomo 780.79 Malaise And Assoc,pc Rigo, N.P. Fatigue Other Hospitalists 789.00 Pain Abdominal Unspec Site 311 Depressive Disorder Not Elsewhere Spec 300.00 Anxiety State Unspec Office 01/31/2015 [facility] Barbara 729.89 Musculoskeletal Visit 12:26p Clinic Jabier, Symptoms Limbs M.D. Other 729.1 Myalgia & Myositis Unspec 300.11 Conversion Disorder Office Visit 01/30/2015 [facility] Eugene, 789.00 Pain Abdominal 12:24p Clinic M.D. Unspec Site 729.89 Musculoskeletal Symptoms Limbs Other 729.1 Myalgia & Myositis Unspec 300.11 Conversion Disorder Office Visit 01/30/2015 3:32p [facility] Hill Loomis, 780.79 Malaise And Assoc,pc N.P. Fatigue Other Hospitalists 789.00 Pain Abdominal Unspec Site 311 Depressive Disorder Not Elsewhere Spec 300.00 Anxiety State Unspec Office Visit 01/29/2015 [facility] Armenlit Ashley 789.00 Pain Abdominal 8:13a Assoc,pc II, M.D. Unspec Site Hospitalists 530.81 Esophageal Reflux 296.20 Depressive Disorder Major Single Episode Unspec 300.00 Anxiety State Unspec Office Visit 12/26/2014 9:06a [facility] Christa Franks, 789.00 Pain Abdominal Assoc,pc N.P. Unspec Site Hospitalists 564.1 Irritable Bowel Syndrome 309.81 Posttraumatic Stress Disorder 300.00 Anxiety State Unspec Office Visit 04/04/2014 11:45a [facility] Barbara Eugene, 346.70 Chronic Migraine Services Of [employer] W/Out Aura W/Out Mention Intractable 333.1 Tremor Essential & Other Forms 784.0 Headache Office Visit 01/03/2014 3:00p [facility] Qutaybeh S. 785.1 Palpitations Qasim Rueda 780.4 Dizziness & Giddiness 458.9 Hypotension Unspec Office Visit 12/28/2013 1:30p [facility] Qutaybeh S. 785.1 Palpitations Qasim Rueda 786.50 Pain Chest Unspec 780.4 Dizziness & Giddiness 729.1 Myalgia & Myositis Unspec 794.31 Electrocardiogram (ECG) (EKG) Abnormal 786.05 Shortness Of Breath Office Visit 12/07/2013 11:20a [facility] Qutaybeh S. 729.1 Myalgia & Qasim Rueda Myositis Unspec 785.1 Palpitations 780.4 Dizziness & Giddiness 786.50 Pain Chest Unspec 794.31 Electrocardiogram (ECG) (EKG) [facility]normal [facility] Enteritis & 8:26a Assoclui M.D. Gastroenteritis Hospitalists Presumed Infectious Orig 787.01 Nausea W/ Vomiting 300.00 Anxiety State Unspec 729.1 Myalgia & Myositis Unspec [facility] Colitis Enteritis & 8:25a Assoclui M.D. Gastroenteritis Hospitalists Presumed Infectious Orig 787.01 Nausea W/ Vomiting 300.00 Anxiety State Unspec 729.1 Myalgia & Myositis Unspec Office Visit 11/08/2013 8:12a [facility] Emely S. 560.9 Intestinal Assoclui, N.P. Obstruction Hospitalists Unspec 787.01 Nausea W/ Vomiting 300.00 Anxiety State Unspec 729.1 Myalgia & Myositis Unspec Office Visit 10/21/2013 11:30a [facility] Barbara Eugene, 333.1 Tremor Essential Services Of Training Representative M.DGiacomo & Other Forms 346.70 Chronic Migraine W/Out Aura W/Out Mention Intractable 781.1 Smell & Taste Sensation Disturbances Office Visit 04/26/2013 11:45a [facility] Barbara Eugene, 346.90 Migraine Unspec Services Of Training Representative M.D. W/O Intractable W/O Status Migrainosus Office Visit 01/07/2013 11:30a [facility] Barbara Eugene, 346.90 Migraine Unspec Services Of Training Representative MGiacomoDGiacomo W/O Intractable W/O Status Migrainosus 333.1 Tremor Essential & Other Forms 728.85 Spasm Muscle Office Visit 09/09/2012 3:15p [facility] Barbara Eugene, 333.1 Tremor Essential Services Of [place] Pascal.Libby & Other Forms 728.85 Spasm Muscle 346.90 Migraine Unspec W/O Intractable W/O Status Migrainosus Office Visit 07/01/2012 11:30a [facility] Barbara Eugene, 346.90 Migraine Unspec Services Of [employer] W/O Intractable W/O Status Migrainosus Office Visit 03/19/2012 10:45a [facility] Barbara Eugene, 346.00 Migraine Services Of [employer] Classical W/O Intractable W/O Status Migrainosus 333.1 Tremor Essential & Other Forms 728.85 Spasm Muscle 781.2 Gait Abnormality Plan of Treatment Future Appointment(s):02/03/2019 9:30 am - Barbara Eugene M.D. at [facility]/30/2018 - Barbara Eugene M.D.G43.109 Migraine with aura, not intractable, without status migrainoComments:We will look into oxygen from another vendor.Follow up:4 months (30 min)Recommendations:consider trying gluconated magnesium (up 400- 500mg a day; start low)G44.019 Episodic cluster headache, not intractable
[2018-10-23 21:27] LABS: Urine Appearance Clear; Urine Bacteria Absent (Absent); Urine Bilirubin Negative (Negative); Urine Blood 1+ (Negative); Urine Color Colorless; Urine Glucose Negative (Negative); Urine Ketones Negative (Negative); Urine Nitrite Negative (Negative); Urine Protein Negative (Negative); Urine Red Blood Cell Trace(0-2/hpf) (Absent); Urine Specific Gravity 1.002 (1.010-1.030); Urine Urobilinogen Negative (Negative); Urine White Blood Cell Absent (Absent)
[2018-10-23 21:40] LABS: ABS Basophils 0 10^3/ul (0-0.2); ABS Eosinophils 0 10^3/ul (0-0.6); ABS Lymphocytes 1.2 10^3/ul (1.0-4.8); ABS Monocytes 0.4 10^3/ul (0-0.8); ABS Neutrophils 4.9 10^3/ul (1.5-7.7); ABS Nucleated RBC 0 10^3/ul; Eosinophil % 0.5 %; Hematocrit 41 % (35-47); Hemoglobin 13.6 g/dl (12.0-16.0); Lymphocyte % 18.2 %; Mean Corpuscular HGB Conc 33 g/dl (31-36); Mean Corpuscular Hemoglobin 30 pg (27-31); Mean Corpuscular Volume 90 fL (80-97); Mean Platelet Volume 7.6 fL (7.4-10.4); Nucleated Red Blood Cells % 0.1; Platelet Count 247 10^3/ul (150-450); Red Blood Count 4.59 10^6/ul (4.00-5.40); Red Cell Distribution Width 14 % (10.5-15); White Blood Count 6.6 10^3/ul (3.5-10.8)
[2018-10-23 21:55] LABS: ALT 14 U/L (7-52); AST 17 U/L (13-39); Albumin 4.7 g/dL (3.2-5.2); Albumin/Globulin Ratio 1.8 (1-3); Alkaline Phosphatase 67 U/L (34-104); Anion Gap 4 mmol/L (2-11); BUN/Creatinine Ratio 16.2 (8-20); Blood Urea Nitrogen 16 mg/dL (6-24); C Reactive Protein < 1.00 mg/L (<8.01); CO2 Carbon Dioxide 30 mmol/L (22-32); Calcium 9.5 mg/dL (8.6-10.3); Chloride 105 mmol/L (101-111); EGFR African American 72.4 (>60); EGFR Non-African American 59.9 (>60); Globulin 2.6 g/dL (2-4); Glucose 122 mg/dL (70-100); Magnesium 2.3 mg/dL (1.9-2.7); Potassium 4.5 mmol/L (3.5-5.0); Sodium 139 mmol/L (135-145); Total Protein 7.3 g/dL (6.4-8.9)
[2018-10-23 22:23] LABS: TSH (Thyroid Stimulating Horm) 1.97 mcIU/mL (0.34-5.60)
[2018-10-23] MEDS ORDERED: Ondansetron INJ* 2 MG/ML VIAL IV ONE (22:32)
[2018-10-23] MEDS ORDERED: LORazepam INJ* 2 MG/ML 1 ML VIAL IV PUSH ONE (22:32)
[2018-10-23] MEDS ORDERED: LORazepam INJ* 2 MG/ML 1 ML VIAL IM ONE (22:44)
[2018-10-23] MEDS: Ondansetron ODT TAB* 4 MG PO ONE ×2 (22:59→23:03)
--- NOTE | 2018-10-23 23:53 | ED ---
GI/ HPI - HPI Summary HPI Summary: 48-year-old female presents with acute abdominal pain. She states is radiating from her left flank into her left lower abdomen. She denies any chest pain or shortness of breath. She states that her feels like her heart was racing. She says that this has happened before. She is concerned that she has a kidney stone. She had some loose stools today. She states she was nauseous and vomited once. She states she is in extreme pain. She took Ativan for the pain. She took zofran but it did not do anything. she denies any fevers. she states she feels hot. she has had her appendix and gallbladder removed. she denies any urinary symptoms or hematuria. - History of Current Complaint Chief Complaint: EDGeneral Time Seen by Provider: 10/23/18 22:23 Stated Complaint: HOT FLASHES/HEART RACING/ABD PAIN PER PT Pain Intensity: 8 - Additional Pertinent History Primary Care Physician: YOLI - Allergy/Home Medications Allergies/Adverse Reactions: Allergies Allergy/AdvReac Type Severity Reaction Status Date / Time diphenhydramine Allergy HEART RACES Verified 10/10/17 11:56 gluten Allergy AVOIDS Verified 10/10/17 11:56 Iodinated Contrast- Oral and Allergy HIVES/ITCHING/DIFFICULTY Verified 11:56 IV Dye BREATHING latex Allergy DIFFICULTY Verified 10/10/17 11:56 BREATHING/HIVES/ITCHING Penicillins Allergy DIFFICULTY Verified 10/10/17 11:56 BREATHING, ITCHING AND HIVES shellfish derived Allergy Unknown Verified 08/28/18 17:44 Reaction Details Sulfa (Sulfonamide Allergy Unknown Verified 08/28/18 17:44 Antibiotics) Reaction Details sulfite Allergy HEADACHES, Verified 10/10/17 11:56 DIFFICULTY BREATHING AND GI UPSET [id number] Antimigraine Allergy AVOIDS DUE Verified 10/10/17 11:56 Agents TO MITRAL VALVE REGURGE "STEROID" Allergy FACIAL Uncoded 10/10/17 11:56 SWELLING/STATES FELT VERY ILL BENZOATES Allergy HEADACHES, Uncoded 10/10/17 11:56 DIFFICULTY BREATHING AND GI UPSET DAIRY PRODUCTS Allergy AVOIDS Uncoded 10/10/17 11:56 PRESERVATIVE/ADDITIVES Allergy AVOIDS Uncoded 10/10/17 11:56 SULFA ANTIBIOTICS Allergy DIFFICULTY Uncoded 02/23/18 11:56 BREATHING/HIVES AND ITCHING PMH/Surg Hx/FS Hx/Imm Hx Endocrine/Hematology History: Denies: Hx Diabetes Cardiovascular History: Reports: Hx Valvular Heart Disease - MITRAL VALVE REGURGE Denies: Hx Hypertension, Hx Pacemaker/ICD Respiratory History: Reports: Hx Asthma, Hx Seasonal Allergies GI History: Reports: Hx Gall Bladder Disease - colysystectomy 2009, Hx Gastroesophageal Reflux Disease, Hx Irritable Bowel, Hx Obstructive Bowel, Other GI Disorders - Campbell's Esophagus Denies: Hx Crohn's Disease - BEING WORKED UP History: Reports: Hx Kidney Stones, Other Problems/Disorders - Stage II Kidney Disease Denies: Hx Renal Disease - NEPHROLITHIALSIS Musculoskeletal History: Reports: Hx Back Problems - PHYSICAL TRAUMA FROM PAST. , Hx Bursitis - LEFT HIP, Hx Fibromyalgia Sensory History: Reports: Hx Contacts or Glasses, Hx Vision Problem Denies: Hx Hearing Aid, Other Sensory Impairments Opthamlomology History: Reports: Hx Contacts or Glasses, Hx Vision Problem Denies: Other Sensory Impairments Neurological History: Reports: Hx Headaches - CLUSTER-PRN MEDICATION FOR-AND OXYGEN THERAPY, Hx Migraine, Hx Nerve Disease - FIBROMYALGIA, Hx Seizures - Previous Hx, but pt did not report to t/w during eval, Other Neuro Impairments/ Disorders - essential tremors, fibromyalgia Denies: Hx Spinal Cord Injury, Hx Transient Ischemic Attacks (TIA) Psychiatric History: Reports: Hx Anxiety, Hx Eating Disorder, Hx Depression, Hx Panic Disorder, Hx Post Traumatic Stress Disorder, Hx [place] [facility] [place], Hx [facility], Hx Suicide Attempt, Other Psychiatric Issues/Disorders - Conversion Disorder Denies: Hx of Violent Episodes Against Others, Hx Substance Abuse - Cancer History Hx Chemotherapy: No Hx Radiation Therapy: No - Surgical History Surgery Procedure, Year, and Place: [place]- [place] [facility] [place], [place] [facility]. LAPROSCOPIC ABDOMINAL - EXPLORATORY;. removal extra bones in feet in -[place],83- [place]; Hx Anesthesia Reactions: Yes - HEART WAS BEATING TOO FAST AFTER GALL BLADDER SURGERY Infectious Disease History: No Infectious Disease History: Denies: Hx Clostridium Difficile, Hx Hepatitis, Hx Human Immunodeficiency Virus (HIV), Hx of Known/Suspected MRSA, Hx Shingles, Hx Tuberculosis, Hx Known/ Suspected VRE, Hx Known/Suspected VRSA, History Other Infectious Disease, Traveled Outside the [place] in Last 30 Days - Family History Known Family History: Positive: Unknown, Diabetes - Social History Alcohol Use: None Hx Substance Use: No Substance Use Type: Reports: None Hx Tobacco Use: No Smoking Status (MU): Never Smoked Tobacco Review of Systems Negative: Fever Positive: Palpitations. Negative: Chest Pain Negative: Shortness Of Breath Positive: Abdominal Pain, Vomiting, Nausea. Negative: Diarrhea Positive: flank pain. Negative: dysuria All Other Systems Reviewed And Are Negative: Yes Physical Exam Triage Information Reviewed: Yes Vital Signs On Initial Exam: Initial Vitals Temp Pulse Resp BP Pulse Ox 98.2 F 107 16 118/74 100 10/23/18 18:18 10/23/18 18:18 10/23/18 18:18 10/23/18 18:18 10/23/18 18:18 Vital Signs Reviewed: Yes Appearance: Positive: Well-Appearing Skin: Positive: Warm, Dry Head/Face: Positive: Normal Head/Face Inspection Eyes: Positive: Normal, Conjunctiva Clear ENT: Positive: Pharynx normal Respiratory/Lung Sounds: Positive: Clear to Auscultation, Breath Sounds Present Cardiovascular: Positive: Normal, RRR Abdomen Description: Positive: Soft, CVA Tenderness (L), Other: - tenderness left side abd Bowel Sounds: Positive: Present Musculoskeletal: Positive: Normal Neurological: Positive: Normal Psychiatric: Positive: Normal Diagnostics - Vital Signs Vital Signs Temp Pulse Resp BP Pulse Ox 10/23/18 23:00 68 134/91 98 10/23/18 22:29 99.1 F 10/23/18 22:22 90 134/80 98 10/23/18 20:37 99.1 F 80 18 120/55 97 10/23/18 18:18 98.2 F 107 16 118/74 100 - Laboratory Lab Results: Lab Results 10/23/18 10/23/18 10/23/18 Range/Units 21:14 21:20 21:20 WBC 6.6 (3.5-10.8) 10^3/ul RBC 4.59 (4.00-5.40) 10^6/ul Hgb 13.6 (12.0-16.0) g/dl Hct 41 (35-47) % MCV 90 (80-97) fL MCH 30 (27-31) pg MCHC 33 (31-36) g/dl RDW 14 (10.5-15) % Plt Count 247 (150-450) 10^3/ul MPV 7.6 (7.4-10.4) fL Neut % (Auto) 74.1 % Lymph % (Auto) 18.2 % [place] % (Auto) 6.8 % Eos % (Auto) 0.5 % Baso % (Auto) 0.4 % Absolute Neuts (auto) 4.9 (1.5-7.7) 10^3/ul Absolute Lymphs (auto) 1.2 (1.0-4.8) 10^3/ul Absolute Monos (auto) 0.4 (0-0.8) 10^3/ul Absolute Eos (auto) 0 (0-0.6) 10^3/ul Absolute Basos (auto) 0 (0-0.2) 10^3/ul Absolute Nucleated RBC 0 10^3/ul Nucleated RBC % 0.1 Sodium 139 (135-145) mmol/L Potassium 4.5 (3.5-5.0) mmol/L Chloride 105 (101-111) mmol/L Carbon Dioxide 30 (22-32) mmol/L Anion Gap 4 (2-11) mmol/L BUN 16 (6-24) mg/dL Creatinine 0.99 H (0.51-0.95) mg/dL Est GFR ( Amer) 72.4 (>60) Est GFR (Non-Af Amer) 59.9 (>60) BUN/Creatinine Ratio 16.2 (8-20) Glucose 122 H (70-100) mg/dL Calcium 9.5 (8.6-10.3) mg/dL Magnesium 2.3 (1.9-2.7) mg/dL Total Bilirubin 0.30 (0.2-1.0) mg/dL AST 17 (13-39) U/L ALT 14 (7-52) U/L Alkaline Phosphatase 67 (34-104) U/L Troponin I 0.00 (<0.04) ng/mL C-Reactive Protein < 1.00 (<8.01) mg/L Total Protein 7.3 (6.4-8.9) g/dL Albumin 4.7 (3.2-5.2) g/dL Globulin 2.6 (2-4) g/dL Albumin/Globulin Ratio 1.8 (1-3) Lipase 28 (11.0-82.0) U/L TSH 1.97 (0.34-5.60) mcIU/mL Urine Color Colorless Urine Appearance Clear Urine pH 7.0 (5-9) Ur Specific [place] 1.002 L (1.010-1.030) Urine Protein Negative (Negative) Urine Ketones Negative (Negative) Urine Blood 1+ A (Negative) Urine Nitrate Negative (Negative) Urine Bilirubin Negative (Negative) Urine Urobilinogen Negative (Negative) Ur Leukocyte Esterase Negative (Negative) Urine WBC (Auto) Absent (Absent) Urine RBC (Auto) Trace(0-2/hpf) (Absent) Urine Bacteria Absent (Absent) Urine Glucose Negative (Negative) Result Diagrams: 10/23/18 21:20 10/23/18 21:20 Lab Statement: Any lab studies that have been ordered have been reviewed, and results considered in the medical decision making process. - CT No standard instances CT Interpretation Completed By: Radiologist Summary of CT Findings: IMPRESSION: 1. No CT findings to correlate with patient 's symptomatology. Specifically no. obstructing renal or ureteral calculi. 2. Bilateral nephrolithiasis. - EKG No standard instances Cardiac Rate: NL EKG Rhythm: Sinus Rhythm EKG Comparison: No Significant Change Summary of EKG Findings: sinus rhythm GIGU Course/Dx - Course Course Of Treatment: 48-year-old female presents with acute abdominal pain. She states is radiating from her left flank into her left lower abdomen. She denies any chest pain or shortness of breath. She states that her feels like her heart was racing. She says that this has happened before. She is concerned that she has a kidney stone. She had some loose stools today. She states she was nauseous and vomited once. She states she is in extreme pain. She took Ativan for the pain. She took zofran but it did not do anything. she denies any fevers. she states she feels hot. On exam tenderness left quadrant lower quadrant and left flank. No rebound. Lungs clear to auscultation. EKG shows sinus rhythm. White blood cell count normal. CRP normal. Urine shows no infection. CT is normal. she is feeling better after ativan and zofran. Told to follow up primary. Patient understands agrees plan. - Diagnoses Differential Diagnoses - Female: Pyelonephritis, Urinary Tract Infection, Ureteral Calculi Provider Diagnoses: Abdominal pain Discharge - Sign-Out/Discharge Documenting (check all that apply): Patient Departure Patient Received Moderate/Deep Sedation with Procedure: No - Discharge Plan Condition: Good Disposition: HOME Patient Education Materials: Acute Abdominal Pain (ED) Referrals: Briseyda Gray MD [Primary Care Provider] - Additional Instructions: Take zofran every 6 hours as needed for nausea Follow up with primary Return to ED if develop any new or worsening symptoms - Billing Disposition and Condition Condition: GOOD Disposition: Home
[2018-10-24 00:27] VITALS: BP 97/72
== END 2018-10-24 00:27 | disposition home or self-care (01) ==
LOC: ED 18:04
DX: R10.84 Generalized abdominal pain (principal); K21.9 Gastro-esophageal reflux disease without esophagitis; R11.2 Nausea with vomiting, unspecified; Z88.2 Allergy status to sulfonamides; Z88.0 Allergy status to penicillin; Z86.79 Personal history of other diseases of the circulatory system; Z87.442 Personal history of urinary calculi
CPT/HCPCS: 36415; 74176; 80053; 81003; 81015; 83690; 83735; 84443; 84484; 85025; 86140; 93005; 96372; 96374; 96375; 99282; A9270-GY; J2060

== ENCOUNTER 2018-12-27 09:20 | Emergency (ER) | payer MEDICARE, MEDICAID ==
[2018-12-27] MEDS ORDERED: LORazepam TAB(*) 1 MG PO ONE (10:28)
--- NOTE | 2018-12-27 10:34 | ED ---
Complex/Multi-Sys Presentation - HPI Summary HPI Summary: Pt. is a 48 y.o female who presents to the ER for evaluation after a "histamine reaction." Pt. states she has a hx of histamine intolerance for many years and had worsening symptoms today. Pt. states she ate breakfast which was not anything abnormal and started feeling flushed and itching and had vomiting and diarrhea. Pt. took a dose of 0.5mg ativan but sxs persisted so presented to ER. Pt. denies SOB, facial/mouth edema. Past hx of depression/anxiety, PTSD, essential tremor, fibromyalgia, GERD, histamine intolerance. Pt. notes she has chronic left flank pain and hx of stones. She follows with urology and has an apt. with them tomorrow for worsening flank pain. Pt. denies fever, recent illness, cough, sore throat, sinus congestion, abd. pain, urinary sxs. Sxs are moderate in severity. No current modifying factors. - History Of Current Complaint Chief Complaint: EDGeneral Time Seen by Provider: 12/27/18 09:33 Hx Obtained From: Patient - Allergies/Home Medications Allergies/Adverse Reactions: Allergies Allergy/AdvReac Type Severity Reaction Status Date / Time diphenhydramine Allergy HEART RACES Verified 12/27/18 09:29 gluten Allergy AVOIDS Verified 12/27/18 09:29 Iodinated Contrast- Oral and Allergy HIVES/ITCHING/DIFFICULTY Verified 09:29 IV Dye BREATHING latex Allergy DIFFICULTY Verified 12/27/18 09:29 BREATHING/HIVES/ITCHING Penicillins Allergy DIFFICULTY Verified 12/27/18 09:29 BREATHING, ITCHING AND HIVES shellfish derived Allergy Unknown Verified 12/27/18 09:29 Reaction Details Sulfa (Sulfonamide Allergy Unknown Verified 12/27/18 09:29 Antibiotics) Reaction Details sulfite Allergy HEADACHES, Verified 12/27/18 09:29 DIFFICULTY BREATHING AND GI UPSET [id number] Antimigraine Allergy AVOIDS DUE Verified 12/27/18 09:29 Agents TO MITRAL VALVE REGURGE "STEROID" Allergy FACIAL Uncoded 10/10/17 11:56 SWELLING/STATES FELT VERY ILL BENZOATES Allergy HEADACHES, Uncoded 10/10/17 11:56 DIFFICULTY BREATHING AND GI UPSET DAIRY PRODUCTS Allergy AVOIDS Uncoded 10/10/17 11:56 PRESERVATIVE/ADDITIVES Allergy AVOIDS Uncoded 10/10/17 11:56 SULFA ANTIBIOTICS Allergy DIFFICULTY Uncoded 10/10/17 11:56 BREATHING/HIVES AND ITCHING PMH/Surg Hx/FS Hx/Imm Hx Previously Healthy: Yes Endocrine/Hematology History: Denies: Hx Diabetes Cardiovascular History: Reports: Hx Valvular Heart Disease - MITRAL VALVE REGURGE Denies: Hx Hypertension, Hx Pacemaker/ICD Respiratory History: Reports: Hx Asthma, Hx Seasonal Allergies GI History: Reports: Hx Gall Bladder Disease - colysystectomy 2009, Hx Gastroesophageal Reflux Disease, Hx Irritable Bowel, Hx Obstructive Bowel, Other GI Disorders - Campbell's Esophagus Denies: Hx Crohn's Disease - BEING WORKED UP History: Reports: Hx Kidney Stones, Other Problems/Disorders - Stage II Kidney Disease Denies: Hx Renal Disease - NEPHROLITHIALSIS Musculoskeletal History: Reports: Hx Back Problems - PHYSICAL TRAUMA FROM PAST. , Hx Bursitis - LEFT HIP, Hx Fibromyalgia Sensory History: Reports: Hx Contacts or Glasses, Hx Vision Problem Denies: Hx Hearing Aid, Other Sensory Impairments Opthamlomology History: Reports: Hx Contacts or Glasses, Hx Vision Problem Denies: Other Sensory Impairments Neurological History: Reports: Hx Headaches - CLUSTER-PRN MEDICATION FOR-AND OXYGEN THERAPY, Hx Migraine, Hx Nerve Disease - FIBROMYALGIA, Hx Seizures - Previous Hx, but pt did not report to t/w during eval, Other Neuro Impairments/ Disorders - essential tremors, fibromyalgia Denies: Hx Spinal Cord Injury, Hx Transient Ischemic Attacks (TIA) Psychiatric History: Reports: Hx Anxiety, Hx Eating Disorder, Hx Depression, Hx Panic Disorder, Hx Post Traumatic Stress Disorder, Hx Inpatient Treatment - [facility] [place] [facility] [place], Hx [facility], Hx Suicide Attempt, Other Psychiatric Issues/Disorders - Conversion Disorder Denies: Hx of Violent Episodes Against Others, Hx Substance Abuse - Cancer History Hx Chemotherapy: No Hx Radiation Therapy: No - Surgical History Surgery Procedure, Year, and Place: cholecystectomy- 2009- [facility] [place], [place] cyst removed- 1991- [place];. LAPROSCOPIC ABDOMINAL - EXPLORATORY;. removal extra bones in feet in -[place],83- [place]; Hx Anesthesia Reactions: Yes - HEART WAS BEATING TOO FAST AFTER GALL BLADDER SURGERY Infectious Disease History: No Infectious Disease History: Denies: Hx Clostridium Difficile, Hx Hepatitis, Hx Human Immunodeficiency Virus (HIV), Hx of Known/Suspected MRSA, Hx Shingles, Hx Tuberculosis, Hx Known/ Suspected VRE, Hx Known/Suspected VRSA, History Other Infectious Disease, Traveled Outside the [place] in Last 30 Days - Family History Known Family History: Positive: Unknown, Diabetes - Social History Occupation: Disabled Lives: With Family Alcohol Use: None Hx Substance Use: No Substance Use Type: Reports: None Hx Tobacco Use: No Smoking Status (MU): Never Smoked Tobacco Review of Systems Constitutional: Negative Negative: Fever, Chills Eyes: Negative ENT: Negative Cardiovascular: Negative Negative: Palpitations, Chest Pain Respiratory: Negative Negative: Shortness Of Breath, Cough Positive: Vomiting, Diarrhea, Nausea Genitourinary: Negative Positive: Other - chronic left flank pain Positive: Rash - chronic Neurological: Negative Positive: Anxious All Other Systems Reviewed And Are Negative: Yes Physical Exam Triage Information Reviewed: Yes Vital Signs On Initial Exam: Initial Vitals Temp Pulse Resp BP Pulse Ox 99.2 F 107 18 149/109 99 12/27/18 09:22 12/27/18 09:22 12/27/18 09:22 12/27/18 09:22 12/27/18 09:22 Vital Signs Reviewed: Yes Appearance: Positive: No Pain Distress - Pt. sitting up in bed in NAD. Very anxious. Skin: Positive: Warm, Dry, Other - No urticaria Head/Face: Positive: Normal Head/Face Inspection Eyes: Positive: Normal, EOMI, VIVI, Conjunctiva Clear ENT: Positive: Pharynx normal, TMs normal, Uvula midline. Negative: Tonsillar swelling, Tonsillar exudate Neck: Positive: Supple Respiratory/Lung Sounds: Positive: Clear to Auscultation, Breath Sounds Present. Negative: Rhonchi, Stridor, Wheezes Cardiovascular: Positive: Normal, RRR Abdomen Description: Positive: Other: - Mild diffuse tenderness pt. notes is chronic. Left flank tenderness she notes is chronic. Neurological: Positive: Normal, CN Intact II-III Psychiatric: Positive: Affect/Mood Appropriate Diagnostics - Vital Signs Vital Signs Temp Pulse Resp BP Pulse Ox 12/27/18 09:22 99.2 F 107 18 149/109 99 - Laboratory Result Diagrams: 12/27/18 10:27 12/27/18 10:27 Lab Statement: Any lab studies that have been ordered have been reviewed, and results considered in the medical decision making process. Complex Multi-Symp Course/Dx Course Of Treatment: Pt. presenting with the above complaints. No signs of anaphylactic rxn. Afebrile. HR and BP mildly elevated. Pt. notes that ativan and zofran usually help her sx. Pt. notes she has zofran but did not take it. Pt. would like to take a dose of her zofran. Will give another 0.5mg Ativan. Will check basic labs and u/a. Blood work and U/A are unremarkable. On re-exam pt. resting comfortably. family member now present. Pt. c/o a burning sensation in throat and mouth. She does not hx of acid reflux. Recommend GI cocktail but pt. states she has had a bad rxn to it in the past. Pt. and family comfortable with dc home. Thye have an apt. with Dr. Perry tomorrow. Will return if sxs change or worsen. - Diagnoses Provider Diagnoses: Stress reaction, Allergic reaction Discharge - Sign-Out/Discharge Documenting (check all that apply): Patient Departure Patient Received Moderate/Deep Sedation with Procedure: No - Discharge Plan Condition: Improved Disposition: HOME Referrals: Briseyda Gray MD [Primary Care Provider] - Additional Instructions: Call PCP today for a close follow up appointment Continue home medications as directed Return to ER if symptoms change or worsen - Billing Disposition and Condition Condition: IMPROVED Disposition: Home
[2018-12-27 10:36] LABS: ABS Lymphocytes 1.2 10^3/ul (1.0-4.8); ABS Monocytes 0.3 10^3/ul (0-0.8); ABS Neutrophils 2.7 10^3/ul (1.5-7.7); Hematocrit 39 % (35-47); Hemoglobin 12.9 g/dL (12.0-16.0); Lymphocyte % 28.4 %; Mean Corpuscular HGB Conc 33 g/dL (31-36); Mean Corpuscular Hemoglobin 30 pg (27-31); Mean Corpuscular Volume 89 fL (80-97); Mean Platelet Volume 8.1 fL (7.4-10.4); Nucleated Red Blood Cells % 0.2; Platelet Count 202 10^3/uL (150-450); Red Blood Count 4.33 10^6 /uL (3.70-4.87); Red Cell Distribution Width 14 % (10.5-15); White Blood Count 4.3 10^3/uL (3.5-10.8)
[2018-12-27 10:51] LABS: Albumin 4.5 g/dL (3.2-5.2); Albumin/Globulin Ratio 1.9 (1-3); Calcium 9.5 mg/dL (8.6-10.3); EGFR African American 71.6 (>60); EGFR Non-African American 59.2 (>60); Globulin 2.4 g/dL (2-4); Potassium 3.8 mmol/L (3.5-5.0); Total Bilirubin 0.5 mg/dL (0.2-1.0); Total Protein 6.9 g/dL (6.4-8.9)
[2018-12-27 11:15] LABS: Urine Appearance Clear; Urine Bilirubin Negative (Negative); Urine Blood Negative (Negative); Urine Color Straw; Urine Glucose Negative (Negative); Urine Ketones Negative (Negative); Urine Nitrite Negative (Negative); Urine Protein Negative (Negative); Urine Specific Gravity 1.006 (1.010-1.030); Urine Urobilinogen Negative (Negative)
[2018-12-27 11:59] VITALS: BP 110/50
== END 2018-12-27 11:59 | disposition home or self-care (01) ==
LOC: ED 09:20
DX: T78.49XA Other allergy, initial encounter (principal); X58.XXXA Exposure to other specified factors, initial encounter; F43.9 Reaction to severe stress, unspecified; K21.9 Gastro-esophageal reflux disease without esophagitis; Z88.0 Allergy status to penicillin; Z88.2 Allergy status to sulfonamides; Z91.040 Latex allergy status
CPT/HCPCS: 36415; 80053; 81003; 85025; 99283; A9270-GY

== ENCOUNTER 2019-01-06 11:57 | Emergency (ER) | payer MEDICARE, MEDICAID ==
[2019-01-06] MEDS ORDERED: LORazepam TAB(*) 1 MG PO ONE (14:41)
[2019-01-06 14:52] LABS: ABS Lymphocytes 1.4 10^3/ul (1.0-4.8); ABS Monocytes 0.5 10^3/ul (0-0.8); ABS Neutrophils 4.8 10^3/ul (1.5-7.7); Eosinophil % 0.3 %; Hematocrit 40 % (35-47); Hemoglobin 13.2 g/dL (12.0-16.0); Lymphocyte % 20.9 %; Mean Corpuscular HGB Conc 33 g/dL (31-36); Mean Corpuscular Hemoglobin 30 pg (27-31); Mean Corpuscular Volume 89 fL (80-97); Mean Platelet Volume 7.9 fL (7.4-10.4); Platelet Count 213 10^3/uL (150-450); Red Blood Count 4.44 10^6 /uL (3.70-4.87); Red Cell Distribution Width 13 % (10.5-15); White Blood Count 6.7 10^3/uL (3.5-10.8)
[2019-01-06 15:18] LABS: ALT 11 U/L (7-52); AST 15 U/L (13-39); Albumin 4.6 g/dL (3.2-5.2); Albumin/Globulin Ratio 1.9 (1-3); Alkaline Phosphatase 56 U/L (34-104); Anion Gap 9 mmol/L (2-11); BUN/Creatinine Ratio 10.8 (8-20); Blood Urea Nitrogen 11 mg/dL (6-24); C Reactive Protein < 1.00 mg/L (<8.01); CO2 Carbon Dioxide 25 mmol/L (22-32); Calcium 9.9 mg/dL (8.6-10.3); Chloride 106 mmol/L (101-111); EGFR Non-African American 57.8 (>60); Globulin 2.4 g/dL (2-4); Glucose 106 mg/dL (70-100); Potassium 4.4 mmol/L (3.5-5.0); Sodium 140 mmol/L (135-145)
--- NOTE | 2019-01-06 15:36 | ED ---
Complex/Multi-Sys Presentation - HPI Summary HPI Summary: 48 year old female presents with rash today. She states she's had this rash often over the past couple months. She has follow-up with speech therapy director tomorrow. She states she is here for allergen testing. She denies any chest pressures or shortness of breath. She seems very anxious. She denies any difficulty swelling. No bowel pain nausea vomiting. - History Of Current Complaint Chief Complaint: EDGeneral Time Seen by Provider: 01/06/19 14:18 - Allergies/Home Medications Allergies/Adverse Reactions: Allergies Allergy/AdvReac Type Severity Reaction Status Date / Time diphenhydramine Allergy HEART RACES Verified 01/06/19 12:07 gluten Allergy AVOIDS Verified 01/06/19 12:07 Iodinated Contrast- Oral and Allergy HIVES/ITCHING/DIFFICULTY Verified 12:07 IV Dye BREATHING latex Allergy DIFFICULTY Verified 01/06/19 12:07 BREATHING/HIVES/ITCHING Penicillins Allergy DIFFICULTY Verified 01/06/19 12:07 BREATHING, ITCHING AND HIVES shellfish derived Allergy Unknown Verified 01/06/19 12:07 Reaction Details Sulfa (Sulfonamide Allergy Unknown Verified 01/06/19 12:07 Antibiotics) Reaction Details sulfite Allergy HEADACHES, Verified 01/06/19 12:07 DIFFICULTY BREATHING AND GI UPSET [id number] Antimigraine Allergy AVOIDS DUE Verified 01/06/19 12:07 Agents TO MITRAL VALVE REGURGE "STEROID" Allergy FACIAL Uncoded 01/06/19 12:07 SWELLING/STATES FELT VERY ILL BENZOATES Allergy HEADACHES, Uncoded 01/06/19 12:07 DIFFICULTY BREATHING AND GI UPSET DAIRY PRODUCTS Allergy AVOIDS Uncoded 01/06/19 12:07 PRESERVATIVE/ADDITIVES Allergy AVOIDS Uncoded 01/06/19 12:07 SULFA ANTIBIOTICS Allergy DIFFICULTY Uncoded 01/06/19 12:07 BREATHING/HIVES AND ITCHING PMH/Surg Hx/FS Hx/Imm Hx Endocrine/Hematology History: Denies: Hx Diabetes Cardiovascular History: Reports: Hx Valvular Heart Disease - MITRAL VALVE REGURGE Denies: Hx Hypertension, Hx Pacemaker/ICD Respiratory History: Reports: Hx Asthma, Hx Seasonal Allergies GI History: Reports: Hx Gall Bladder Disease - colysystectomy 2009, Hx Gastroesophageal Reflux Disease, Hx Irritable Bowel, Hx Obstructive Bowel, Other GI Disorders - Campbell's Esophagus Denies: Hx Crohn's Disease - BEING WORKED UP History: Reports: Hx Kidney Stones, Other Problems/Disorders - Stage II Kidney Disease Denies: Hx Renal Disease - NEPHROLITHIALSIS Musculoskeletal History: Reports: Hx Back Problems - PHYSICAL TRAUMA FROM PAST. , Hx Bursitis - LEFT HIP, Hx Fibromyalgia Sensory History: Reports: Hx Contacts or Glasses, Hx Vision Problem Denies: Hx Hearing Aid, Other Sensory Impairments Opthamlomology History: Reports: Hx Contacts or Glasses, Hx Vision Problem Denies: Other Sensory Impairments Neurological History: Reports: Hx Headaches - CLUSTER-PRN MEDICATION FOR-AND OXYGEN THERAPY, Hx Migraine, Hx Nerve Disease - FIBROMYALGIA, Hx Seizures - Previous Hx, but pt did not report to t/w during eval, Other Neuro Impairments/ Disorders - essential tremors, fibromyalgia Denies: Hx Spinal Cord Injury, Hx Transient Ischemic Attacks (TIA) Psychiatric History: Reports: Hx Anxiety, Hx Eating Disorder, Hx Depression, Hx Panic Disorder, Hx Post Traumatic Stress Disorder, Hx Inpatient Treatment - [facility] [place] [facility] November 2014, Hx [facility], [facility], Hx Suicide Attempt, Other Psychiatric Issues/Disorders - Conversion Disorder Denies: Hx of Violent Episodes Against Others, Hx Substance Abuse - Cancer History Hx Chemotherapy: No Hx Radiation Therapy: No - Surgical History Surgery Procedure, Year, and Place: cholecystectomy- 2009- [facility] [place]. [facility], [facility]. LAPROSCOPIC ABDOMINAL - EXPLORATORY;. removal extra bones in feet [facility] 82-[facility]; Hx Anesthesia Reactions: Yes - HEART WAS BEATING TOO FAST AFTER GALL BLADDER SURGERY Infectious Disease History: No Infectious Disease History: Denies: Hx Clostridium Difficile, Hx Hepatitis, Hx Human Immunodeficiency Virus (HIV), Hx of Known/Suspected MRSA, Hx Shingles, Hx Tuberculosis, Hx Known/ Suspected VRE, Hx Known/Suspected VRSA, History Other Infectious Disease, Traveled Outside the [place] in Last 30 Days - Family History Known Family History: Positive: Unknown, Diabetes - Social History Alcohol Use: None Hx Substance Use: No Substance Use Type: Reports: None Hx Tobacco Use: No Smoking Status (MU): Never Smoked Tobacco Review of Systems Negative: Fever Negative: Chest Pain Positive: Rash All Other Systems Reviewed And Are Negative: Yes Physical Exam Triage Information Reviewed: Yes Vital Signs On Initial Exam: Initial Vitals Temp Pulse Resp BP Pulse Ox 98.6 F 132 19 145/79 98 01/06/19 12:01 01/06/19 12:01 01/06/19 12:01 01/06/19 12:01 01/06/19 12:01 Vital Signs Reviewed: Yes Appearance: Positive: Well-Appearing Skin: Positive: Warm, Dry, Other - faint scattered urticaria rash on abd Head/Face: Positive: Normal Head/Face Inspection Eyes: Positive: Normal, EOMI, VIVI, Conjunctiva Clear ENT: Positive: Normal ENT inspection, Pharynx normal, TMs normal Respiratory/Lung Sounds: Positive: Clear to Auscultation, Breath Sounds Present Cardiovascular: Positive: Normal, RRR Abdomen Description: Positive: Nontender, Soft Bowel Sounds: Positive: Present Musculoskeletal: Positive: Normal Neurological: Positive: Normal Psychiatric: Positive: Normal Diagnostics - Vital Signs Vital Signs Temp Pulse Resp BP Pulse Ox 01/06/19 15:13 18 01/06/19 13:44 98.6 F 109 17 133/69 99 01/06/19 12:01 98.6 F 132 19 145/79 98 - Laboratory Lab Results: Lab Results 01/06/19 01/06/19 Range/Units 14:46 14:46 WBC 6.7 (3.5-10.8) 10^3/uL RBC 4.44 (3.70-4.87) 10^6 /uL Hgb 13.2 (12.0-16.0) g/dL Hct 40 (35-47) % MCV 89 (80-97) fL MCH 30 (27-31) pg MCHC 33 (31-36) g/dL RDW 13 (10.5-15) % Plt Count 213 (150-450) 10^3/uL MPV 7.9 (7.4-10.4) fL Neut % (Auto) 71.4 % Lymph % (Auto) 20.9 % [place] % (Auto) 6.8 % Eos % (Auto) 0.3 % Baso % (Auto) 0.6 % Absolute Neuts (auto) 4.8 (1.5-7.7) 10^3/ul Absolute Lymphs (auto) 1.4 (1.0-4.8) 10^3/ul Absolute Monos (auto) 0.5 (0-0.8) 10^3/ul Absolute Eos (auto) 0.0 (0-0.6) 10^3/ul Absolute Basos (auto) 0.0 (0-0.2) 10^3/ul Absolute Nucleated RBC 0.0 10^3/ul Nucleated RBC % 0.0 Sodium 140 (135-145) mmol/L Potassium 4.4 (3.5-5.0) mmol/L Chloride 106 (101-111) mmol/L Carbon Dioxide 25 (22-32) mmol/L Anion Gap 9 (2-11) mmol/L BUN 11 (6-24) mg/dL Creatinine 1.02 H (0.51-0.95) mg/dL Est GFR ( Amer) 70.0 (>60) Est GFR (Non-Af Amer) 57.8 (>60) BUN/Creatinine Ratio 10.8 (8-20) Glucose 106 H (70-100) mg/dL Calcium 9.9 (8.6-10.3) mg/dL Total Bilirubin 0.50 (0.2-1.0) mg/dL AST 15 (13-39) U/L ALT 11 (7-52) U/L Alkaline Phosphatase 56 (34-104) U/L C-Reactive Protein < 1.00 (<8.01) mg/L Total Protein 7.0 (6.4-8.9) g/dL Albumin 4.6 (3.2-5.2) g/dL Globulin 2.4 (2-4) g/dL Albumin/Globulin Ratio 1.9 (1-3) Result Diagrams: 01/06/19 14:46 01/06/19 14:46 Lab Statement: Any lab studies that have been ordered have been reviewed, and results considered in the medical decision making process. Re-Evaluation - Re-Evaluation First Eval Change: Improved Comment: less anxious Complex Multi-Symp Course/Dx Course Of Treatment: 48 year old female presents with rash today. She states she's had this rash often over the past couple months. She has follow-up with speech therapy director tomorrow. She states she is here for allergen testing. She denies any chest pressures or shortness of breath. She seems very anxious. She denies any difficulty swelling. No bowel pain nausea vomiting. On exam has a few scattered urticaria on abdomen. lungs CTA. Pharynx normal. is anxious so gave anxiety meds and better. Basic lab work is normal. We'll have follow-up with speech therapy director. Patient understands agrees with plan. - Diagnoses Provider Diagnoses: Rash, Anxiety Discharge - Sign-Out/Discharge Documenting (check all that apply): Patient Departure Patient Received Moderate/Deep Sedation with Procedure: No - Discharge Plan Condition: Good Disposition: HOME Referrals: Briseyda Gray MD [Primary Care Provider] - Additional Instructions: follow up as scheduled Return to ED if develop any new or worsening symptoms - Billing Disposition and Condition Condition: GOOD Disposition: Home
[2019-01-06 15:50] VITALS: BP 112/70
== END 2019-01-06 15:49 | disposition home or self-care (01) ==
LOC: ED 11:57
DX: R21 Rash and other nonspecific skin eruption (principal); F41.9 Anxiety disorder, unspecified; N18.2 Chronic kidney disease, stage 2 (mild); Z88.2 Allergy status to sulfonamides; Z88.8 Allergy status to other drugs, medicaments and biological substances; Z91.041 Radiographic dye allergy status; Z91.02 Food additives allergy status; Z91.040 Latex allergy status; Z91.011 Allergy to milk products; Z88.0 Allergy status to penicillin; Z91.013 Allergy to seafood
CPT/HCPCS: 36415; 80053; 85025; 86140; 99282; A9270-GY

== ENCOUNTER 2019-03-14 18:29 | Emergency (ER) | payer MEDICARE, MEDICAID ==
--- NOTE | 2019-03-14 20:41 | ED ---
Abdominal Pain/Female - HPI Summary HPI Summary: This patient is a 48 year old F presenting to [facility] accompanied by her friend with a chief complaint of diffuse abdominal pain since early this afternoon that is rated an 8/10 in severity and is described as cramping. She states that she also has nausea and an increase in urination. She states that she is currently constipated and has not had a BM since yesterday. She has no alleviating factors. Pt denies any fever, chills, erythema of eyes, sore throat , CP, SOB, cough, abdominal pain, vomiting, dysuria, hematuria, myalgia, edema, rash, or dizziness. She recently started a new diet. States a Hx of a SBO, kidney stones, gastritis, fibromyalgia and a removal of her gall bladder. She states that she usually takes small doses of Lorazepam for pain and Seroquel at night. She states that she is having immense struggles with keeping weight on her body. - History of Current Complaint Chief Complaint: Zoe Stated Complaint: SEVERE STOMACH PAIN PER PT Time Seen by Provider: 03/14/19 20:37 Hx Obtained From: Patient Onset/Duration: Sudden Onset, Lasting Hours - since this afternoon, Still Present, Worse Since - onset Timing: Constant Severity Initially: Moderate Severity Currently: Severe Pain Intensity: 8 Pain Scale Used: 0-10 Numeric Radiates: No Character: Cramping Aggravating Factor(s): Nothing Alleviating Factor(s): Nothing Associated Signs and Symptoms: Positive: Negative - fever, chills, erythema of eyes, sore throat, CP, SOB, cough, vomiting, dysuria, hematuria, myalgia, edema , rash, or dizziness, Constipation, Urinary Symptoms - increased frequency, Nausea. Negative: Fever, Cough, Chest Pain, Vomiting, Diarrhea Allergies/Adverse Reactions: Allergies Allergy/AdvReac Type Severity Reaction Status Date / Time diphenhydramine Allergy HEART RACES Verified 01/06/19 12:07 gluten Allergy AVOIDS Verified 01/06/19 12:07 Iodinated Contrast- Oral and Allergy HIVES/ITCHING/DIFFICULTY Verified 12:07 IV Dye BREATHING latex Allergy DIFFICULTY Verified 01/06/19 12:07 BREATHING/HIVES/ITCHING Penicillins Allergy DIFFICULTY Verified 01/06/19 12:07 BREATHING, ITCHING AND HIVES shellfish derived Allergy Unknown Verified 01/06/19 12:07 Reaction Details Sulfa (Sulfonamide Allergy Unknown Verified 01/06/19 12:07 Antibiotics) Reaction Details sulfite Allergy HEADACHES, Verified 01/06/19 12:07 DIFFICULTY BREATHING AND GI UPSET [id number] Antimigraine Allergy AVOIDS DUE Verified 01/06/19 12:07 Agents TO MITRAL VALVE REGURGE "STEROID" Allergy FACIAL Uncoded 01/06/19 12:07 SWELLING/STATES FELT VERY ILL BENZOATES Allergy HEADACHES, Uncoded 01/06/19 12:07 DIFFICULTY BREATHING AND GI UPSET DAIRY PRODUCTS Allergy AVOIDS Uncoded 01/06/19 12:07 PRESERVATIVE/ADDITIVES Allergy AVOIDS Uncoded 01/06/19 12:07 SULFA ANTIBIOTICS Allergy DIFFICULTY Uncoded 01/06/19 12:07 BREATHING/HIVES AND ITCHING PMH/Surg Hx/FS Hx/Imm Hx Previously Healthy: Yes Endocrine/Hematology History: Denies: Hx Diabetes Cardiovascular History: Reports: Hx Valvular Heart Disease - MITRAL VALVE REGURGE Denies: Hx Hypertension, Hx Pacemaker/ICD Respiratory History: Reports: Hx Asthma, Hx Seasonal Allergies GI History: Reports: Hx Gall Bladder Disease - colysystectomy 2009, Hx Gastroesophageal Reflux Disease, Hx Irritable Bowel, Hx Obstructive Bowel, Other GI Disorders - Campbell's Esophagus Denies: Hx Crohn's Disease - BEING WORKED UP History: Reports: Hx Kidney Stones, Other Problems/Disorders - Stage II Kidney Disease Denies: Hx Renal Disease - NEPHROLITHIALSIS Musculoskeletal History: Reports: Hx Back Problems - PHYSICAL TRAUMA FROM PAST. , Hx Bursitis - LEFT HIP, Hx Fibromyalgia Sensory History: Reports: Hx Contacts or Glasses, Hx Vision Problem Denies: Hx Hearing Aid, Other Sensory Impairments Opthamlomology History: Reports: Hx Contacts or Glasses, Hx Vision Problem Denies: Other Sensory Impairments Neurological History: Reports: Hx Headaches - CLUSTER-PRN MEDICATION FOR-AND OXYGEN THERAPY, Hx Migraine, Hx Nerve Disease - FIBROMYALGIA, Hx Seizures - Previous Hx, but pt did not report to t/w during eval, Other Neuro Impairments/ Disorders - essential tremors, fibromyalgia Denies: Hx Spinal Cord Injury, Hx Transient Ischemic Attacks (TIA) Psychiatric History: Reports: Hx Anxiety, Hx Eating Disorder, Hx Depression, Hx Panic Disorder, Hx Post Traumatic Stress Disorder, Hx Inpatient Treatment - [facility] November 2014, [facility] [place] [facility], [facility], Hx Suicide Attempt, Other Psychiatric Issues/Disorders - Conversion Disorder Denies: Hx of Violent Episodes Against Others, Hx Substance Abuse - Cancer History Hx Chemotherapy: No Hx Radiation Therapy: No - Surgical History Surgery Procedure, Year, and Place: [place] [facility] [place], [facility]. LAPROSCOPIC ABDOMINAL - EXPLORATORY;. removal extra bones in feet in 82-[facility],83- [place]; Hx Anesthesia Reactions: Yes - HEART WAS BEATING TOO FAST AFTER GALL BLADDER SURGERY Infectious Disease History: No Infectious Disease History: Denies: Hx Clostridium Difficile, Hx Hepatitis, Hx Human Immunodeficiency Virus (HIV), Hx of Known/Suspected MRSA, Hx Shingles, Hx Tuberculosis, Hx Known/ Suspected VRE, Hx Known/Suspected VRSA, History Other Infectious Disease, Traveled Outside the [place] in Last 30 Days - Family History Known Family History: Positive: Unknown, Diabetes - Social History Alcohol Use: None Hx Substance Use: No Substance Use Type: Reports: None Hx Tobacco Use: No Smoking Status (MU): Never Smoked Tobacco Review of Systems Negative: Fever, Chills Negative: Erythema Negative: Sore Throat Negative: Chest Pain Negative: Shortness Of Breath, Cough Positive: Abdominal Pain - diffuse, Nausea, Other - POSITIVE: constipation. Negative: Vomiting, Diarrhea Positive: frequency - increased Negative: Myalgia, Edema Negative: Rash Neurological: Negative - dizziness Negative: Headache All Other Systems Reviewed And Are Negative: Yes Physical Exam - Summary Physical Exam Summary: VITAL SIGNS: Reviewed. GENERAL: Patient is a well-developed, very anxious, and nourished female who is lying comfortable in the stretcher. Patient is not in any acute respiratory distress. HEAD AND FACE: No signs of trauma. No ecchymosis, hematomas or skull depressions. No sinus tenderness. EYES: PERRLA, EOMI x 2, No injected conjunctiva, no nystagmus. EARS: Hearing grossly intact. Ear canals and tympanic membranes are within normal limits. MOUTH: Oropharynx within normal limits. NECK: Supple, trachea is midline, no adenopathy, no JVD, no carotid bruit, no c- spine tenderness, neck with full ROM CHEST: Symmetric, no tenderness at palpation LUNGS: Clear to auscultation bilaterally. No wheezing or crackles. CVS: Regular rate and rhythm, S1 and S2 present, no murmurs or gallops appreciated. ABDOMEN: Soft, diffuse tenderness, with hypoactive bowel sounds. No signs of distention. No rebound no guarding, and no masses palpated. EXTREMITIES: FROM in all major joints, no edema, no cyanosis or clubbing. NEURO: Alert and oriented x 3. No acute neurological deficits. Speech is normal and follows commands. SKIN: Dry and warm Triage Information Reviewed: Yes Vital Signs On Initial Exam: Initial Vitals Temp Pulse Resp BP Pulse Ox 99.7 F 116 20 133/92 99 03/14/19 18:32 03/14/19 18:32 03/14/19 18:32 03/14/19 18:32 03/14/19 18:32 Vital Signs Reviewed: Yes Diagnostics - Vital Signs Vital Signs Temp Pulse Resp BP Pulse Ox 03/14/19 18:32 99.7 F 116 20 133/92 99 - Laboratory Result Diagrams: 03/14/19 21:04 03/14/19 21:04 Lab Statement: Any lab studies that have been ordered have been reviewed, and results considered in the medical decision making process. - CT CT A/P CT Interpretation Completed By: Radiologist Summary of CT Findings: 1. No CT findings to correlate with patient's symptomatology. 2. Bilateral nephrolithiasis. ED physician has reviewed this report Abdominal Pain Fem Course/Dx - Course Course Of Treatment: This patient is a 48 year old F presenting to [facility] accompanied by her friend with a chief complaint of diffuse abdominal pain since early this afternoon that is rated an 8/10 in severity and is described as cramping. She states that she also has nausea and an increase in urination. Her PE found that she was very anxious, has diffuse tenderness with hypoactive bowel sounds. She has a pertinent PMHx of SBO, kidney stones, gastritis, fibromyalgia and a removal of her gall bladder. Het CT A/P found the following : 1. No CT findings to correlate with patient's symptomatology. 2. Bilateral nephrolithiasis. Due to her lack of lab findings and her CT A/P results, the pt will be discharged home with a Dx of abdominal pain. - Diagnoses Provider Diagnoses: Abdominal pain Discharge - Sign-Out/Discharge Documenting (check all that apply): Patient Departure - discharge Patient Received Moderate/Deep Sedation with Procedure: No - Discharge Plan Condition: Stable Disposition: HOME Patient Education Materials: Acute Abdominal Pain (ED) Referrals: Briseyda Gray MD [Primary Care Provider] - 2 Days Additional Instructions: Please return to the emergency department for any new or worsening symptoms. Follow up with your primary care provider in 2-3 days. - Attestation Statements Document Initiated by Scribe: Yes Documenting Scribe: Jose Luis Barber Provider For Whom Scribe is Documenting (Include Credential): Vilma Cloud MD Scribe Attestation: IJose Luis, scribed for Vilma Cloud MD on 03/14/19 at 2317. Status of Scribe Document: Ready
[2019-03-14] MEDS ORDERED: ED cefTRIAXone 1 GM/50 ML 1 GM/50 ML PREMIX.SET IVPB ONE (20:46)
[2019-03-14] MEDS ORDERED: NS 0.9% 1000 ML** 1,000 ML IV ONE (20:46)
[2019-03-14] MEDS ORDERED: LORazepam INJ* 2 MG/ML 1 ML VIAL IV PUSH ONE (20:50)
[2019-03-14] MEDS ORDERED: Lorazepam PYXIS KEY PRN (20:50)
[2019-03-14] MEDS ORDERED: Metoclopramide IV* 5 MG/ML 2 ML VIAL IV SLOW PU ONE (20:50)
[2019-03-14] MEDS ORDERED: Lorazepam PYXIS KEY ONE (21:01)
[2019-03-14 21:18] LABS: Urine Appearance Clear; Urine Bilirubin Negative (Negative); Urine Blood Negative (Negative); Urine Color Yellow; Urine Glucose Negative (Negative); Urine Ketones 1+ (Negative); Urine Nitrite Negative (Negative); Urine Protein Negative (Negative); Urine Specific Gravity 1.017 (1.010-1.030); Urine Urobilinogen Negative (Negative)
[2019-03-14 21:28] LABS: ABS Lymphocytes 1.5 10^3/ul (1.0-4.8); ABS Monocytes 0.5 10^3/ul (0-0.8); ABS Neutrophils 3.7 10^3/ul (1.5-7.7); Eosinophil % 0.5 %; Hematocrit 41 % (35-47); Hemoglobin 13.5 g/dL (12.0-16.0); Lymphocyte % 26.4 %; Mean Corpuscular HGB Conc 33 g/dL (31-36); Mean Corpuscular Hemoglobin 30 pg (27-31); Mean Corpuscular Volume 90 fL (80-97); Mean Platelet Volume 8.2 fL (7.4-10.4); Platelet Count 224 10^3/uL (150-450); Red Blood Count 4.54 10^6 /uL (3.70-4.87); Red Cell Distribution Width 14 % (10-15); White Blood Count 5.8 10^3/uL (3.5-10.8)
[2019-03-14 21:48] LABS: ALT 10 U/L (7-52); AST 14 U/L (13-39); Albumin 4.7 g/dL (3.2-5.2); Albumin/Globulin Ratio 1.7 (1-3); Alkaline Phosphatase 64 U/L (34-104); Amylase 72 U/L (29-103); Anion Gap 9 mmol/L (2-11); BUN/Creatinine Ratio 15.2 (8-20); Blood Urea Nitrogen 15 mg/dL (6-24); C Reactive Protein < 1.00 mg/L (<8.01); CO2 Carbon Dioxide 27 mmol/L (22-32); Calcium 10.1 mg/dL (8.6-10.3); Chloride 104 mmol/L (101-111); EGFR African American 72.4 (>60); EGFR Non-African American 59.9 (>60); Globulin 2.7 g/dL (2-4); Glucose 119 mg/dL (70-100); Magnesium 2.2 mg/dL (1.9-2.7); Sodium 140 mmol/L (135-145); Total Protein 7.4 g/dL (6.4-8.9)
[2019-03-14 22:40] VITALS: BP 110/68
== END 2019-03-14 23:28 | disposition home or self-care (01) ==
LOC: ED 18:29
DX: R10.84 Generalized abdominal pain (principal); N20.0 Calculus of kidney; Z87.442 Personal history of urinary calculi; R11.0 Nausea; R35.0 Frequency of micturition; K59.00 Constipation, unspecified; I34.0 Nonrheumatic mitral (valve) insufficiency; N18.2 Chronic kidney disease, stage 2 (mild); M79.7 Fibromyalgia; Z90.49 Acquired absence of other specified parts of digestive tract; Z88.2 Allergy status to sulfonamides; Z88.8 Allergy status to other drugs, medicaments and biological substances; Z91.041 Radiographic dye allergy status; Z91.040 Latex allergy status; Z91.011 Allergy to milk products; Z88.0 Allergy status to penicillin; Z91.013 Allergy to seafood
CPT/HCPCS: 36415; 74176; 80053; 81003; 82150; 83690; 83735; 85025; 86140; 96361; 96374; 99284; J2060

== ENCOUNTER 2019-08-20 02:36 | Emergency (ER) | payer MEDICARE, MEDICAID ==
--- OUTSIDE RECORDS SUMMARY | 2019-08-20 03:00 | XMS REPORT ---
:1970 Author Organization [facility] Care Team Providers Name Role Phone Shawna Hamiltonnda Primary Care Physician Unavailable Allergies, Adverse Reactions, Alerts Allergy Code CodeSystem Reaction Severity Criticality Status Start Substance Date Moderate Medications Medication Medication Medication Start Stop Route Dose Status Fill Code CodeSystem Date Date Instructions lorazepam RxNorm 2019-03-0 oral 1 mg completed for - 9-13 tablet day(s) Viibryd [id number] RxNorm 2018-10-0 oral 10 mg completed for 6-27 tablet day(s) lorazepam RxNorm 2018-10-0 oral 1 mg completed for - 5-17 tablet day(s) lorazepam RxNorm 2019-04-1 oral 1 mg completed for 30 - 0-27 tablet day(s) lorazepam RxNorm 2018-01-0 oral 1 mg 1 completed 1 tablet -06 4-28 tablet twice a day twice a as needed for day 30 day(s) Viibryd [id number] RxNorm 2018-07 2019-0 oral 10 mg completed for - 3-29 tablet day(s) quetiapine 606121 RxNorm 2017-03 2019-0 oral 25 mg completed for 30 - 3-29 tablet day(s) Viibryd 5247820 RxNorm 2018-10 2019-0 oral 10 mg completed for 30 -29 6-28 tablet day(s) quetiapine 526754 RxNorm 2018-10 2019-0 oral 25 mg 1 completed 1 tablet -29 6-27 tablet twice a day twice a for 30 day(s) day Viibryd 8177808 RxNorm 2019-01 2019-0 oral 10 mg 1 completed 1 tablet -28 9-26 tablet twice a day twice a for 30 day(s) day lorazepam RxNorm 2019-01-0 oral 1 mg completed for 30 7-28 tablet day(s) lorazepam RxNorm 2018-12 oral 1 mg completed for 30 6-28 tablet day(s) lorazepam RxNorm 2018-12 oral 1 mg 1 completed 1 tablet -17 6-16 tablet twice a day twice a as needed for day 30 day(s) Problems Problem Name Code CodeSystem Alternate Alternate Start End Status Narrative Code CodeSystem Date Date Depressive [id number] SNOMED-CT Active episode, 3- unspecified Relevant diagnostic tests/laboratory data Narrative No Information Procedures Procedure Code CodeSystem Target Date of Status Service Device Device Device Name Site Procedure Delivery Code Name UID Location Psychotherap [id number] SNOMED-CT () 2019 complete Mental y, 45 04 d Health- minutes with [address], [id number] [id number] Psychotherap [id number] SNOMED-CT () 2019-05-18 complete Mental y, 45 04 d Health- minutes with [address], [id number] [id number] Psychotherap [id number] SNOMED-CT () 2019-06-01 complete Mental y, 45 04 d Health- minutes with [address], [id number] [id number] Psychotherap [id number] SNOMED-CT () 2019-06-08 complete Mental y, 45 04 d Health- minutes with [address], [id number] [id number] Psychotherap [id number] SNOMED-CT () 2019-06-15 complete Mental y, 45 04 d Health- minutes with [address], [id number] [id number] Psychotherap [id number] SNOMED-CT () 2019-05-04 complete Mental y, 45 04 d Health- minutes with [address], [id number] [id number] Psychotherap [id number] SNOMED-CT () 2019-04-20 complete Mental y, 45 04 d Health- minutes with [address], [id number] [id number] Psychotherap [id number] SNOMED-CT () 2019-04-27 complete Mental y, 45 04 d Health- minutes with [address], [id number] [phone] Psychotherap [id number] SNOMED-CT () 2019-05-11 complete Mental y, 45 04 d Health- minutes with [address], [id number] [phone] Psychotherap 267141 SNOMED-CT () 2019-02-02 complete Mental y, 45 04 d Health- minutes with [address], [id number] [id number] Psychotherap 355556 SNOMED-CT () 2019-02-09 complete Mental y, 45 04 d Health- minutes with [address], [id number] [phone] Psychotherap [id number] SNOMED-CT () 2019-02-17 complete Mental y, 45 04 d Health- minutes with [address], [id number] [id number] Psychotherap [id number] SNOMED-CT () 2019-03-09 complete Mental y, 45 04 d Health- minutes with [address], [id number] [id number] Psychotherap 600794 SNOMED-CT () 2019-02-23 complete Mental y, 45 04 d Health- minutes with [address], [id number] [id number] Psychotherap 454708 SNOMED-CT () 2019-03-16 complete Mental y, 45 04 d Health- minutes with [address], [id number] [phone] Psychotherap 764575 SNOMED-CT () 2018-12-15 complete Mental y, 45 04 d Health- minutes with [address], [id number] [id number] Psychotherap [id number] SNOMED-CT () 2019-01-05 complete Mental y, 45 04 d Health- minutes with [address], [id number] [id number] Psychotherap 928065 SNOMED-CT () 2019-01-12 complete Mental y, 45 04 d Health- minutes with [address], [id number] [phone] Psychotherap 869043 SNOMED-CT () 2018-12-22 complete Mental y, 45 04 d Health- minutes with [address], [id number] [phone] Psychotherap 597520 SNOMED-CT () 2019-01-20 complete Mental y, 45 04 d Health- minutes with [address], [id number] [phone] Psychotherap 992722 SNOMED-CT () 2019-01-26 complete Mental y, 45 04 d Health- minutes with [address], [id number] [id number] Psychotherap 683710 SNOMED-CT () 2019-07-13 complete Mental y, 45 04 d Health- minutes with [address], [id number] [id number] Psychotherap 638949 SNOMED-CT () 2019-07-20 complete Mental y, 45 04 d Health- minutes with [address], [id number] Psychotherap 647603 SNOMED-CT () 2018-11-25 complete Mental y, 45 04 d Health- minutes with [address], [id number] [phone] Psychotherap 677249 SNOMED-CT () 2018-12-01 complete Mental y, 45 04 d Health- minutes with [address], [id number] [id number] Psychotherap 635564 SNOMED-CT () 2018-12-08 complete Mental y, 45 04 d Health- minutes with [address], [id number] [id number] Psychotherap 948480 SNOMED-CT () 2018-12-29 complete Mental y, 45 04 d Health- minutes with [place] patient [address], [id number] [phone] Office or [id number] SNOMED-CT () 2019-05-14 complete Mental other 7 d Health- outpatient [facility] visit for [address], established [id number] patient, [phone] which requires at least 2 of these 3 smith components: An expanded problem focused history; An expanded problem focused examination; Medical decision making of low Office or [id number] SNOMED-CT () 2019-07-29 complete Mental other 6 d Health- outpatient [place] visit for [address], established [id number] patient, [phone] which requires at least 2 of these 3 smith components: A problem focused history; A problem focused examination; Straightforw joan medical decision making. Counselin Office or [id number] SNOMED-CT () 2019-02-12 complete Mental other 6 d Health- outpatient [facility] visit for [address], established [id number] patient, [phone] which requires at least 2 of these 3 smith components: A problem focused history; A problem focused examination; Straightforw joan medical decision making. Counselin SNOMED-CT () 2018-11-17 complete Mental d Health- [address], [id number] SNOMED-CT () 2019-03-30 complete Mental d Health- [address], [id number] SNOMED-CT () 2019-04-13 complete Mental d Health- [address], [id number] [phone] Encounters/Encounter Diagnoses Encounter Name Encounter Diagnosis Diagnosis Diagnosis Date of Service Code Code Name CodeSystem Diagnosis Delivery Location Psychotherapy - [id number] Depressive SNOMED-CT 2019-08-03 Behavioral Individual 30 episode, Health min unspecified Clinic , , , Vital Signs No Information Social History Element Description Description Start End Code CodeSystem AdditionalInfo Date Date SexAssignedAtBirth Female 1970-0 F AdministrativeGender 8-20 Hospital Discharge Instructions Reason For Referral Medical Equipment FDA Assessments
--- OUTSIDE RECORDS SUMMARY | 2019-08-20 03:00 | XMS REPORT ---
:1970 Author Organization [facility] Care Team Providers Name Role Phone Dariela Hamilton Primary Care Physician Unavailable Allergies, Adverse Reactions, Alerts Allergy Code CodeSystem Reaction Severity Criticality Status Start Substance Date Moderate Medications Medication Medication Medication Start Stop Route Dose Status Fill Code CodeSystem Date Date Instructions quetiapine 720189 RxNorm 2017-03-0 oral 25 mg completed for 30 - 3-29 tablet day(s) lorazepam RxNorm 2018-12-0 oral 1 mg completed for 30 -17 6-28 tablet day(s) lorazepam RxNorm 2019-04-1 oral 1 mg completed for 30 - 0-27 tablet day(s) lorazepam RxNorm 2019-01-0 oral 1 mg completed for 30 -28 7-28 tablet day(s) Viibryd 6134466 RxNorm 2018-10-0 oral 10 mg completed for 30 - 6-28 tablet day(s) lorazepam RxNorm 2018-12-0 oral 1 mg 1 completed 1 tablet -17 6-16 tablet twice a day twice a as needed for day 30 day(s) lorazepam RxNorm 2018-10-0 oral 1 mg completed for 30 - 5-17 tablet day(s) Viibryd 3592226 RxNorm 2018-10-0 oral 10 mg completed for 30 -29 6-27 tablet day(s) lorazepam RxNorm 2018-01-0 oral 1 mg 1 completed 1 tablet -06 4-28 tablet twice a day twice a as needed for day 30 day(s) quetiapine 579386 RxNorm 2018-10-0 oral 25 mg 1 completed 1 tablet -29 6-27 tablet twice a day twice a for 30 day(s) day Viibryd 4675131 RxNorm 2019-01-0 oral 10 mg 1 completed 1 - 9-26 tablet twice a day twice a for 30 day(s) day Viibryd 4447025 RxNorm 2018-07- oral 10 mg completed for 30 3-29 tablet day(s) lorazepam 224494 RxNorm 2019-03- oral 1 mg completed for 30 - 9-13 tablet day(s) Problems Problem Name Code CodeSystem Alternate Alternate Start End Status Narrative Code CodeSystem Date Date Depressive 46383733 SNOMED-CT Active episode, - unspecified Relevant diagnostic tests/laboratory data Narrative No Information Procedures Procedure Code CodeSystem Target Date of Status Service Device Device Device Name Site Procedure Delivery Code Name UID Location Psychotherap [id number] SNOMED-CT () 2019 complete Mental y, 45 04 d Health- minutes with [address], [id number] Psychotherap [id number] SNOMED-CT () 2019-05-18 complete Mental y, 45 04 d Health- minutes with [address], [id number] [phone] Psychotherap [id number] SNOMED-CT () 2019-06-01 complete Mental y, 45 04 d Health- minutes with [address], [id number] [id number] Psychotherap 677568 SNOMED-CT () 2019-06-08 complete Mental y, 45 04 d Health- minutes with [address], [id number] [id number] Psychotherap 763663 SNOMED-CT () 2019-06-15 complete Mental y, 45 04 d Health- minutes with [address], [id number] [id number] Psychotherap 755055 SNOMED-CT () 2019-05-04 complete Mental y, 45 04 d Health- minutes with [address], [id number] [id number] Psychotherap 942942 SNOMED-CT () 2019-05-11 complete Mental y, 45 04 d Health- minutes with [address], [id number] [phone] Psychotherap 875140 SNOMED-CT () 2019-02-17 complete Mental y, 45 04 d Health- minutes with [address], [id number] [phone] Psychotherap 283603 SNOMED-CT () 2019-03-09 complete Mental y, 45 04 d Health- minutes with [address], [id number] [id number] Psychotherap 621530 SNOMED-CT () 2019-02-23 complete Mental y, 45 04 d Health- minutes with [address], [id number] [phone] Psychotherap 449587 SNOMED-CT () 2019-03-16 complete Mental y, 45 04 d Health- minutes with [address], [id number] [phone] Psychotherap 628993 SNOMED-CT () 2019-04-20 complete Mental y, 45 04 d Health- minutes with [address], [id number] [phone] Psychotherap 394099 SNOMED-CT () 2019-04-27 complete Mental y, 45 04 d Health- minutes with [address], [id number] [phone] Psychotherap 963422 SNOMED-CT () 2019-01-12 complete Mental y, 45 04 d Health- minutes with [address], [id number] [phone] Psychotherap 115386 SNOMED-CT () 2018-12-22 complete Mental y, 45 04 d Health- minutes with [address], [id number] [phone] Psychotherap 245103 SNOMED-CT () 2019-01-20 complete Mental y, 45 04 d Health- minutes with [address], [id number] [phone] Psychotherap 944294 SNOMED-CT () 2019-01-26 complete Mental y, 45 04 d Health- minutes with [address], [place], [place], [id number] [phone] Psychotherap 795877 SNOMED-CT () 2019-02-02 complete Mental y, 45 04 d Health- minutes with [facility] patient [address], [id number] [id number] Psychotherap 171370 SNOMED-CT () 2019-02-09 complete Mental y, 45 04 d Health- minutes with [facility] patient [address], [id number] [phone] Psychotherap 686126 SNOMED-CT () 2018-11-25 complete Mental y, 45 04 d Health- minutes with [facility] patient [address], [id number] [phone] Psychotherap 231823 SNOMED-CT () 2018-12-01 complete Mental y, 45 04 d Health- minutes with [facility] patient [address], [id number] [phone] Psychotherap 310144 SNOMED-CT () 2018-12-08 complete Mental y, 45 04 d Health- minutes with [facility] patient [address], [id number] [phone] Psychotherap 062845 SNOMED-CT () 2018-12-29 complete Mental y, 45 04 d Health- minutes with [facility] patient [address], [id number] [id number] Psychotherap 031827 SNOMED-CT () 2018-12-15 complete Mental y, 45 04 d Health- minutes with [facility] patient [address], [id number] [phone] Psychotherap 837384 SNOMED-CT () 2019-01-05 complete Mental y, 45 04 d Health- minutes with [facility] patient [address], [id number] [phone] Office or [id number] SNOMED-CT () 2019-05-14 complete Mental other 7 d Health- outpatient [facility] visit for [address], of an [place], established [id number] patient, [phone] which requires at least 2 of these 3 smith components: An expanded problem focused history; An expanded problem focused examination; Medical decision making of low Office or [id number] SNOMED-CT () 2019-02-12 complete Mental other 6 d Health- outpatient [facility] visit for [address], [facility], of an [facility] established [id number] patient, [phone] which requires at least 2 of these 3 smith components: A problem focused history; A problem focused examination; Straightforw joan medical decision making. Counselin SNOMED-CT () 2018-11-17 complete Mental d [facility]- [address], [id number] [phone] SNOMED-CT () 2019-03-30 complete Mental d [address], [phone] [phone] SNOMED-CT () 2019-04-13 complete Mental d [address], [id number] [id number] Encounters/Encounter Diagnoses Encounter Encounter Diagnosis Diagnosis Name Diagnosis Date of Service Name Code Code CodeSystem Diagnosis Delivery Location Non-Billable 29058 [id number] Depressive SNOMED-CT 2019-07-02 Behavioral episode, Health unspecified Clinic , , , Vital Signs No Information Social History Element Description Description Start End Code CodeSystem AdditionalInfo Date Date SexAssignedAtBirth Female 1970-0 F AdministrativeGender 04-06 Hospital Discharge Instructions Reason For Referral Medical Equipment FDA Assessments
[2019-08-20] MEDS ORDERED: NS 0.9% 1000 ML** 1,000 ML IV ONE (03:03)
--- NOTE | 2019-08-20 03:06 | ED ---
HPI Febrile Illness - HPI Summary HPI Summary: This patient is a 49 year old female presenting to [facility] with a chief complaint of respiratory illness. The patient reports intermittent cough, SOB, and chest congestion. She states she has had a fever for approximately 2 days with a temp around 102 F. She reports epistaxis and nausea. - History of Current Complaint Chief Complaint: EDUpperRespComplaint Hx Obtained From: Patient Onset/Duration: Started Hours Ago Pain Intensity: 8 Pain Scale Used: 0-10 Numeric - Additional Pertinent History Primary Care Physician: YOLI - Allergy/Home Medications Allergies/Adverse Reactions: Allergies Allergy/AdvReac Type Severity Reaction Status Date / Time Benzoate Analogues Allergy Headache, Verified 08/20/19 05:48 dyspnea and GI upset diphenhydramine Allergy HEART RACES Verified 08/20/19 03:20 gluten Allergy AVOIDS Verified 08/20/19 03:20 Iodinated Contrast Media Allergy HIVES/ITCHING/DIFFICULTY Verified 08/20/19 03: 20 [Iodinated Contrast- Oral BREATHING and IV Dye] latex Allergy DIFFICULTY Verified 08/20/19 03:20 BREATHING/HIVES/ITCHING Penicillins Allergy DIFFICULTY Verified 08/20/19 03:20 BREATHING, ITCHING AND HIVES shellfish derived Allergy Unknown Verified 08/20/19 03:20 Reaction Details Sulfa (Sulfonamide Allergy Unknown Verified 08/20/19 03:20 Antibiotics) Reaction Details sulfite Allergy HEADACHES, Verified 08/20/19 03:20 DIFFICULTY BREATHING AND GI UPSET Glfkjylp-2-DY4 Antimigraine Allergy AVOIDS DUE Verified 08/20/19 03:20 Agents TO MITRAL VALVE REGURGE dairy products Allergy See Comment Uncoded 08/20/19 05:49 PRESERVATIVE/ADDITIVES Allergy AVOIDS Uncoded 08/20/19 03:20 steroids Allergy Facial Uncoded 08/20/19 05:48 Redness/Flushing Home Medications: Home Medications LORazepam [Lorazepam] 1 tab PO BID PRN MDD 2 tabs 08/20/19 [History Confirmed ] PMH/Surg Hx/FS Hx/Imm Hx Endocrine/Hematology History: Denies: Hx Diabetes Cardiovascular History: Reports: Hx Valvular Heart Disease - MITRAL VALVE REGURGE Denies: Hx Hypertension, Hx Pacemaker/ICD Respiratory History: Reports: Hx Asthma, Hx Seasonal Allergies GI History: Reports: Hx Gall Bladder Disease - colysystectomy 2009, Hx Gastroesophageal Reflux Disease, Hx Irritable Bowel, Hx Obstructive Bowel, Other GI Disorders - Campbell's Esophagus Denies: Hx Crohn's Disease - BEING WORKED UP History: Reports: Hx Kidney Stones, Other Problems/Disorders - Stage II Kidney Disease Denies: Hx Renal Disease - NEPHROLITHIALSIS Musculoskeletal History: Reports: Hx Back Problems - PHYSICAL TRAUMA FROM PAST. , Hx Bursitis - LEFT HIP, Hx Fibromyalgia Sensory History: Reports: Hx Contacts or Glasses, Hx Vision Problem Denies: Hx Hearing Aid, Other Sensory Impairments Opthamlomology History: Reports: Hx Contacts or Glasses, Hx Vision Problem Denies: Other Sensory Impairments Neurological History: Reports: Hx Headaches - CLUSTER-PRN MEDICATION FOR-AND OXYGEN THERAPY, Hx Migraine, Hx Nerve Disease - FIBROMYALGIA, Hx Seizures - Previous Hx, but pt did not report to t/w during eval, Other Neuro Impairments/ Disorders - essential tremors, fibromyalgia Denies: Hx Spinal Cord Injury, Hx Transient Ischemic Attacks (TIA) Psychiatric History: Reports: Hx Anxiety, Hx Eating Disorder, Hx Depression, Hx Panic Disorder, Hx Post Traumatic Stress Disorder, Hx Inpatient Treatment - [facility] November 2014, Hx [facility] - [facility], [facility], Hx Suicide Attempt, Other Psychiatric Issues/Disorders - Conversion Disorder Denies: Hx of Violent Episodes Against Others, Hx Substance Abuse - Cancer History Hx Chemotherapy: No Hx Radiation Therapy: No - Surgical History Surgery Procedure, Year, and Place: cholecystectomy- 2009- [facility] [place]. appendectomy, ovarian cyst removed- 1991- [place];. LAPROSCOPIC ABDOMINAL - EXPLORATORY;. [facility]; Hx Anesthesia Reactions: Yes - HEART WAS BEATING TOO FAST AFTER GALL BLADDER SURGERY Infectious Disease History: No Infectious Disease History: Denies: Hx Clostridium Difficile, Hx Hepatitis, Hx Human Immunodeficiency Virus (HIV), Hx of Known/Suspected MRSA, Hx Shingles, Hx Tuberculosis, Hx Known/ Suspected VRE, Hx Known/Suspected VRSA, History Other Infectious Disease, Traveled Outside the [place] in Last 30 Days - Family History Known Family History: Positive: Diabetes - Social History Alcohol Use: None Hx Substance Use: No Substance Use Type: Reports: None Hx Tobacco Use: No Smoking Status (MU): Never Smoked Tobacco Review of Systems Positive: Fever Positive: Epistaxis Positive: Shortness Of Breath, Cough, Other - Chest congestion Positive: Nausea All Other Systems Reviewed And Are Negative: Yes Physical Exam - Summary Physical Exam Summary: General: thin FEMALE. No acute distress. HEENT: Normocephalic, Atraumatic. Eyes: Conjuctiva normal, PERRL. Oropharynx: Clear, mucous membranes moist, (-) exudates. Neck: Soft, FROM, (-) lymphadenopathy, (-) thyromegaly, (-) JVD. Cardiovascular: Normal sinus rhythm, (-) murmur. Lungs: (+) wheezes, (-) rales, (-) rhonchi. good air exchange Abdomen: Soft, non-tender, non-distended, (-) organomegaly, normal bowel sounds. Back: (-) CVA tenderness Extremities: No edema. Skin: Warm, dry, (-) rash. Neuro: Alert and oriented x3, no focal deficits. Psychiatric: moderately anxious appearing Triage Information Reviewed: Yes Vital Signs On Initial Exam: Initial Vitals Temp Pulse Resp BP Pulse Ox 100.4 F 138 16 94/75 97 08/20/19 02:37 08/20/19 02:37 08/20/19 02:37 08/20/19 02:37 08/20/19 02:37 Vital Signs Reviewed: Yes Procedures - Sedation Patient Received Moderate/Deep Sedation with Procedure: No Diagnostics - Vital Signs Vital Signs Temp Pulse Resp BP Pulse Ox 08/20/19 02:37 100.4 F 138 16 94/75 97 - Laboratory Result Diagrams: 08/20/19 03:35 08/20/19 03:35 Lab Statement: Any lab studies that have been ordered have been reviewed, and results considered in the medical decision making process. - Radiology CXR Radiology Interpretation Completed By: ED Physician Summary of Radiographic Findings: No acute infiltrate or pleural effusion. Pending official radiologist report. Course/Dx - Course Course Of Treatment: 49 year old female presents for cough and sob. patient was very worried about her symptoms. upon arrival she is stable. has normal pulsox on room air. mild wheezes on exam. patient notes multiple drug allergies and ptsd from medication reactions. she initially denies a breathing treatment. then agreed to ativan and breathing treatment. received ativan and then refused breathing treatment again. cxr negative. patient discharged to home. follow up with pcp. follow up sooner for any worsening symptoms - Diagnoses Provider Diagnoses: URI (upper respiratory infection) Discharge ED - Sign-Out/Discharge Documenting (check all that apply): Patient Departure - Discharge - Discharge Plan Condition: Stable Disposition: HOME Patient Education Materials: Upper Respiratory Infection (ED) Referrals: Briseyda Gray MD [Primary Care Provider] - Additional Instructions: Return to ED with new or worsening symptoms. - Billing Disposition and Condition Condition: STABLE Disposition: Home - Attestation Statements Document Initiated by Juaquin: Yes Documenting Scribe: Perez Rojo Provider For Whom Juaquin is Documenting (Include Credential): Eunice Otto MD Scribe Attestation: IPerez, scribed for Eunice Otto MD on 08/20/19 at 0556. Scribe Documentation Reviewed: Yes Provider Attestation: The documentation as recorded by the scribePerez accurately reflects the service I personally performed and the decisions made by me, Eunice Otto MD Status of Scribe Document: Viewed
[2019-08-20] MEDS ORDERED: Lorazepam PYXIS KEY PRN (03:23)
[2019-08-20 03:42] LABS: Influenza A Molecular NEGATIVE (Negative); Influenza B Molecular NEGATIVE (Negative)
[2019-08-20 03:46] LABS: ABS Monocytes 0.8 10^3/ul (0-0.8); ABS Neutrophils 5.7 10^3/ul (1.5-7.7); Eosinophil % 0.5 %; Hematocrit 34 % (35-47); Hemoglobin 11.5 g/dL (12.0-16.0); Lymphocyte % 13.5 %; Mean Corpuscular HGB Conc 34 g/dL (31-36); Mean Corpuscular Hemoglobin 30 pg (27-31); Mean Corpuscular Volume 89 fL (80-97); Mean Platelet Volume 8.1 fL (7.4-10.4); Platelet Count 172 10^3/uL (150-450); Red Blood Count 3.79 10^6 /uL (3.70-4.87); Red Cell Distribution Width 14 % (10-15); White Blood Count 7.6 10^3/uL (3.5-10.8)
[2019-08-20 03:51] LABS: INR 1.05 (0.82-1.09)
[2019-08-20 04:01] LABS: Albumin/Globulin Ratio 1.5 (1-3); BUN/Creatinine Ratio 13.6 (8-20); Calcium 8.9 mg/dL (8.6-10.3); EGFR African American 82.6 (>60); EGFR Non-African American 68.3 (>60); Globulin 2.6 g/dL (2-4); Potassium 3.5 mmol/L (3.5-5.0); Total Bilirubin 0.5 mg/dL (0.2-1.0); Total Protein 6.6 g/dL (6.4-8.9)
[2019-08-20] MEDS ORDERED: Lorazepam PYXIS KEY ONE ×2 (04:23→04:57)
[2019-08-20] MEDS: LORazepam INJ* 2 MG/ML 1 ML VIAL IV PUSH ONE ×2 (04:27→05:01)
[2019-08-20] MEDS: Albuterol 2.5 MG/3 ML NEB.SOL* (0.083%) INH ONE ×2 (04:46→05:14)
[2019-08-20 05:59] VITALS: BP 100/56
== END 2019-08-20 05:50 | disposition home or self-care (01) ==
LOC: ED 02:36
DX: J06.9 Acute upper respiratory infection, unspecified (principal); R06.02 Shortness of breath; R09.89 Other specified symptoms and signs involving the circulatory and respiratory systems; K21.9 Gastro-esophageal reflux disease without esophagitis; R04.0 Epistaxis; R05 Cough; R50.9 Fever, unspecified; Z87.442 Personal history of urinary calculi; Z79.899 Other long term (current) drug therapy
CPT/HCPCS: 36415; 71045; 80053; 83605; 83880; 84484; 85025; 85610; 87040; 96361; 96374; 99283; J2060